=== PATIENT | male | born 1945 | race African-American/Black ===

== ENCOUNTER 2016-10-26 15:15 | Inpatient (IN) | payer OTHER, MEDICAID ==
[~2016-10-26] VITALS: Ht 170.2 cm; Wt 56.2 kg
--- NOTE | 2016-10-26 15:25 | NUR ---
PT BIBA TO BED 5 AT THIS TIME.
[2016-10-26 15:30] VITALS: BP 118/64
--- NOTE | 2016-10-26 15:35 | NUR ---
PER [facility] PATIENT ON CPAP OF [id number] PATIENT REFUSED FACIAL MASK WITH HEAD GEAR DUE TO CLOSTROPHOBIA PATIENT HOLDING MASK PLACED ON A BIPAP VISION TO LARGE FACIAL MASK WITH HEAD GEAR REFUSED TO WEAR AFTER 10 SECONDS DUE TO SAME FORMENTIONED REASON REVIEWED WITH DR. RYDER LASSITER PER ED MD PLACED PATIENT ON SUPPLEMENTAL OXYGEN AT 15 LM VIA NON REBREATHER
[2016-10-26] MEDS ORDERED: ZESTRIL20 MG PO (15:42)
[2016-10-26] MEDS ORDERED: ASPIRIN81 M1 PO (15:42)
--- NOTE | 2016-10-26 15:44 | NUR ---
71/M BIBA TO ED FROM DIALYSIS CENTER WHERE PT BECAME SOB. BILAT WHEEZES HEARD UPON AUSCULATATION. PT DENIES PAIN. PT IS AAOX4. DENIES COUGH. HR EVEN AND REGULAR. ERMD AWARE OF PTS CONDITION.
[2016-10-26] MEDS ORDERED: IPRATROPIUM 0.02% 0.5 MG/2.5 ML NEBU INH ONE ×2 (15:45→15:47)
[2016-10-26] MEDS ORDERED: ALBUTEROL 0.083% 2.5 MG/3 ML NEBU INH ONE ×2 (15:45→15:46)
[2016-10-26] MEDS ORDERED: NITROGLYCERIN 0.4 MG TAB SL ONE (15:45)
--- NOTE | 2016-10-26 15:45 | NUR ---
ADMITTING DX: SOB AWAKE AND ALERT IN HFW POSITION HHN THERAPY GIVEN ORDERED ENCOURAGED DEEP BREATHING AND COUGH DURING THERAPY TOLERATED WELL WITHOUT INCIDENT Addendum: 10/26/16 at 1615 by [facility] HHN THERAPY PLACED PATIENT BACK ON SUPPLEMENATL OXYGEN AT 15 LPM VIA NON-REBREATHER
[2016-10-26] MEDS ORDERED: COREG3.125 MG PO (15:49)
[2016-10-26] MEDS ORDERED: NORVASC10 MG PO (15:49)
[2016-10-26] MEDS ORDERED: VENTOLIN H0.09 MG/Ac IH (15:49)
[2016-10-26] MEDS ORDERED: CATAPRES0.1 MG PO (15:49)
[2016-10-26] MEDS ORDERED: LANTUS INS100 UNITS/ SUBQ (15:52)
[2016-10-26] MEDS ORDERED: DIALYVITE 8001 TAB PO (15:52)
[2016-10-26] MEDS ORDERED: ZOCOR20 MG PO (15:52)
[2016-10-26] MEDS ORDERED: cefTRIAXone 1,000 MG VIAL ONE (16:55)
--- NOTE | 2016-10-26 17:02 | NUR ---
Patient appears to be resting comfortably in bed. Vital Signs within normal limits. Respirations even and unlabored.
[2016-10-26] MEDS ORDERED: LORazepam 1 MG TAB PO PRN (17:10)
[2016-10-26] MEDS ORDERED: ONDANSETRON 4 MG/2 ML VIAL IVP PRN (17:10)
[2016-10-26] MEDS ORDERED: ACETAMINOPHEN 325 MG TAB PO PRN (17:10)
[2016-10-26] MEDS ORDERED: ZOLPIDEM 5 MG TAB PO PRN (17:10)
--- NOTE | 2016-10-26 17:25 | NUR ---
REPEAT HHN THERAPY GIVEN ORDERED TOLERATED WELL WITHOUT INCIDENT
--- NOTE | 2016-10-26 18:02 | NUR ---
PT HAS WOUND ON SACRUM, PICTURES TAKEN
[2016-10-26] MEDS ORDERED: ALBUTEROL 0.083% 2.5 MG/3 ML NEBU INH PRN (18:15)
--- NOTE | 2016-10-26 18:24 | NUR ---
Patient will be admitted to care of DR BAILEY. Admited to TELE. Will go to room 122B. Belongings list completed. Report to TRACY.
[2016-10-26 19:30] VITALS: BP 131/76
--- NOTE | 2016-10-26 19:35 | NUR ---
RECEIVED REPORT FROM DAY NURSETRACY. PATIENT BEING PREPARED TO RECEIVED DIALYSIS, DIALYSIS NURSE AT BEDSIDE. NO RESPIRATORY DISTRESS, SOB, OR DISCOMFORT. INITIAL ASSESSMENT AND BODY CHECK DONE. PATIENT IS AOX4, WOUND NOTED TO SACRAL AREA, IV ACCESS TO RIGHT AC 22G, PATENT. DIALYSIS ACCESS TO LEFT UPPER ARM. PATIENT HAS BL BKA. DISCUSSED PLAN OF CARE, MEDICATION REGIMENT, AND PAIN MANAGEMENT WITH PATIENT. PLACED PATIENT ON SAFETY/FALL/PRESSURE ULCER PRECAUTIONS. CALL LIGHT LEFT WITHIN REACH, WILL CONTINUE TO MONITOR.
[2016-10-26] MEDS: ALBUTEROL 0.083% 2.5 MG/3 ML NEBU INH SCH ×2 (20:06→23:23)
[2016-10-26] MEDS ORDERED: ALBUMIN HUMAN 25% 100 ML IV SCH (20:10)
--- NOTE | 2016-10-26 22:30 | NUR ---
DIALYSIS COMPLETED AT THIS TIME. DIALYSIS NURSE STATED 2L REMOVED FROM PATIENT. PATIENT TOLERATED WELL. NO RESPIRATORY DISTRESS, SOB, OR DISCOMFORT. CALL LIGHT LEFT WITHIN REACH, WILL CONTINUE TO MONITOR.
--- NOTE | 2016-10-26 23:29 | NUR ---
DIALYSIS R CHANGED PT TO 3 L NC CURRENT SAT IS 97% WILL CONTINUE TO MONITOR.
[2016-10-27] VITALS: BP 108/56
--- NOTE | 2016-10-27 00:59 | NUR ---
PATIENT IN BED, SLEEPING. NO RESPIRATORY DISTRESS, SOB, OR DISCOMFORT. CALL LIGHT LEFT WITHIN REACH, WILL CONTINUE TO MONITOR.
--- NOTE | 2016-10-27 03:05 | NUR ---
PATIENT ASLEEP. NO RESPIRATORY DISTRESS, SOB, OR DISCOMFORT. CALL LIGHT LEFT WITHIN REACH, WILL CONTINUE TO MONITOR.
[2016-10-27] MEDS: ALBUTEROL 0.083% 2.5 MG/3 ML NEBU INH SCH ×5 (03:24→19:29)
[2016-10-27 04:00] VITALS: BP 109/59
--- NOTE | 2016-10-27 06:07 | NUR ---
PATIENT SLEEPING. NO RESPIRATORY DISTRESS, SOB, OR DISCOMFORT. CALL LIGHT LEFT WITHIN REACH, WILL CONTINUE TO MONITOR.
--- NOTE | 2016-10-27 07:27 | NUR ---
REPORT GIVEN TO DAY NURSEERIKA. PATIENT RESTING IN BED, STABLE. NO RESPIRATORY DISTRESS, SOB, OR DISCOMFORT. ALL NEEDS ATTENDED TO DURING SHIFT, CALL LIGHT LEFT WITHIN REACH.
[2016-10-27 08:00] VITALS: BP 120/80
--- NOTE | 2016-10-27 08:32 | NUR ---
V/S WITHIN NORMAL LIMITS. PT IS SOB, SITTING IN HIGH CAIN'S POSITION. BREATHING SHALLOW AND RAPID. RESP 36. PT IS USING HIS ACCESSORY MUSCLES, LABORED. HAD ORDERED US GUIDED THORACENTESIS AND CANCELLED THE CT GUIDED THORACENTESIS. PRINTED A CONSENT FORM AND DR. ELY CAME AND EXPLAINED THE PROCEDURE. PT STATED HE HAD ONE PRIOR. HE VERBALIZED UNDERSTANDING AND SIGNED THE CONSENT. CONSENT IN THE CHART. WILL CONTINUE TO MONITOR PT.
--- NOTE | 2016-10-27 09:21 | NUR ---
PATIENT HAS BEEN SCREENED AND CATEGORIZED HIGH NUTRITION RISK. PATIENT WILL BE SEEN WITHIN 1-2 DAYS OF ADMISSION. 10/27/16-10/28/[address]
[2016-10-27] MEDS: DOCUSATE SODIUM 100 MG GELCAP PO SCH (09:22)
[2016-10-27] MEDS: VITAMIN B COMPLEX W/C 1 TAB PO SCH (09:22)
--- NOTE | 2016-10-27 10:00 | NUR ---
PT REQUESTED A PHONE PATCHER HELPER TO CHARGE HIS PHONE. FOUND ONE THAT WAS LEFT BY ANOTHER PT. CHARGED HIS PHONE AND RETURNED THE PATCHER HELPER. PT NEEDED TO GET THE PHONE NUMBER FRO DAUGHTERDAREN FOR FUTURE CONTACT.
--- NOTE | 2016-10-27 11:30 | NUR ---
R.T. HERE TO ADMINISTER BREATHING TX. PT TOLERATED WELL. WILL CONTINUE TO MONITOR.
[2016-10-27 12:00] VITALS: BP 108/71
--- NOTE | 2016-10-27 12:02 | NUR ---
PT IS RESTING IN BED. PT IS SOB BUT BETTER NOW THAT HE HAD THE BREATHING TX. WILL CONTINUE TO MONITOR PT.
--- NOTE | 2016-10-27 12:35 | NUR ---
10/27/16 RD INITIAL ASSESSMENT COMPLETED PLEASE REFER TO NUTRITION ASSESSMENT UNDER CARE ACTIVITY FOR ESTIMATED NUTRITIONAL NEEDS. RD RECOMMENDATIONS: 1. CONTINUE RENAL DIET TOLERATED 2. RD WILL F/U 2-3 DAYS; HIGH RISK. MORENA JONES RD
--- NOTE | 2016-10-27 13:00 | NUR ---
HAD THE THOROCENTESIS AT BEDSIDE. PT TOLERATED WELL. DR. PELAYO AND THE PLANT SCIENTIST CAME AND WITHDREW 1600 ML. WILL KEEP MONITORING PT.
--- NOTE | 2016-10-27 14:00 | NUR ---
STARTING SPITTING OUT FOAMY SALIVA. ASKED IF HE FELT NAUSEATED. HE DENIED IT. IS HUNCHED OVER A BASIN. OFFERED HIM SOME WATER TO RINSE OUT HIS MOUTH BUT REFUSED. TRIED TO DO V/S. HE REFUSED. WE TRIED EDUCATING PT HOW IMPORTANT ALL THESE TESTS WERE BUT NOT LISTENING. WILL CONTINUE TO MONITOR PT.
--- NOTE | 2016-10-27 15:00 | NUR ---
PT STILL SPITTING UP FOAM. ASKED PT IF HE IS NAUSEATED, IF HE NEEDS MEDICINE FOR NAUSEA. HE SAID NO. DID NOT WANT TO BE BOTHERED. WILL CONTINUE TO MONITOR PT.
--- NOTE | 2016-10-27 15:35 | NUR ---
PT REFUSED BREATHING TX AT THIS TIME DUE TO N/V. NURSE AWARE OF REFUSAL. PT NOT SOB AND NOT IN RESPIRATORY DISTRESS AT THIS TIME.
[2016-10-27 16:00] VITALS: BP 113/66
--- NOTE | 2016-10-27 16:33 | NUR ---
ADMINISTERED MARITA, HOPING IT WILL HELP HIS SPITTING UP. WILL CONTINUE TO MONITOR PT.
--- NOTE | 2016-10-27 16:40 | NUR ---
PT WANTED SOMETHING TO HELP HIM SLEEP. I CHECKED HIS BP. STABLE. GAVE ATIVAN 1MG TO CALM HIM DOWN SO HE CAN POSSIBLY SLEEP. HIS NAUSEA IS BETTER. NO MORE SPITTING UP LIKE BEFORE. I'M SITTING IN FRONT OF HIS ROOM AND DOCUMENTING. WILL CONTINUE TO MONITOR.
--- NOTE | 2016-10-27 17:46 | NUR ---
HE REFUSED THE BREATHING TX EARLIER BUT IS WILLING TO HAVE A BREATHING TX NOW. CALLED RESPIRATORY. THEY WILL BE RIGHT OVER TO GIVE HIM ONE.
--- NOTE | 2016-10-27 17:53 | NUR ---
PRN BREATHING TX GIVEN FOR SOB. NASAL CANNULA INCREASED TO 4L DUE TO DECREASED SPO2. PT STATES RELIEF POST TX. SPO2 NOW 93%.
--- NOTE | 2016-10-27 18:47 | NUR ---
PT FELL ASLEEP AFTER HIS BREATHING TX. HAVEN'T TOUCHED HIS DINNER YET. WILL LET HIM SLEEP. NO SIGNS OF DISTRESS. WILL CONTINUE TO MONITOR PT.
--- NOTE | 2016-10-27 19:24 | NUR ---
ENDORSED PT TO THE MEMBERSHIP SOLICITOR NURSE AT BEDSIDE FOR CONTINUITY OF CARE. PT NEEDED TO BE PULLED UP SO SEAN AND I PULLED HIM UP AND TIDIED HIS BLANKETS. PT IS RESTING COMFORTABLY. HE EVEN WANTED TO EAT SOME DINNER. PT IS STABLE.
--- NOTE | 2016-10-27 19:26 | NUR ---
RECEIVED REPORT FROM DAY SHIFT RN FOR CONTINUITY OF CARE. PATIENT IS A&OX4, EXPLAINED PLAN OF CARE TO PATIENT. NO S/S OF RESPIRATORY DISTRESS NOTED ON 3L O2 VIA NC. PATIENT DENIES ANY PAIN . SHIFT ASSESSMENT DONE, VS TAKEN, B/P 98/50 PATIENT STATES THIS IS NORMAL FOR HIM. IV TO RT AC 22 GAUGE PATENT AND FLUSHED. PATIENT HAS BILATERAL BELOW KNEE AMPUTATION, PROSTHESIS AT BEDSIDE. PATIENT HAS SACRAL PRESSURE ULCER STAGE 2. SAFETY/FALL PRECAUTIONS ENFORCED. PATIENT IS SITTING UP IN BED EATING DINNER. CALL LIGHT PLACED WITHIN REACH.
[2016-10-27 19:59] VITALS: BP 98/50
--- NOTE | 2016-10-27 20:32 | NUR ---
SPOKE WITH DIALYSIS NURSE REGARDING ORDER FOR AM DIALYSIS.
[2016-10-27] MEDS ORDERED: PIPERACILLIN/TAZOBACTAM 2.25 GM VIAL IV ONE (20:50)
[2016-10-27] MEDS: PIPER/TAZO 2.25GM/D5W PREMIX 50 ML IV SCH (20:59)
--- NOTE | 2016-10-27 21:03 | NUR ---
DUE MEDICATIONS ADMINISTERED, TOLERATED WELL. PATIENT IS NOW SLEEPING. CALL LIGHT WITHIN REACH.
[2016-10-28] VITALS: BP_SYST 94; BP_SYST 95; BP_DIAS 51; BP_DIAS 52
--- NOTE | 2016-10-28 00:07 | NUR ---
VS TAKEN, STABLE. PROVIDED ORAL CARE TO PATIENT. CALL LIGHT PLACED WITHIN REACH.
[2016-10-28] MEDS: ALBUTEROL SULFATE/IPRATROPIU 3 ML SOL IH SCH ×4 (01:52→19:00)
--- NOTE | 2016-10-28 02:40 | NUR ---
PT IS NOW SLEEPING. NO S/S OF DISTRESS OR DISCOMFORT NOTED.
[2016-10-28 04:00] VITALS: BP 104/52
--- NOTE | 2016-10-28 04:26 | NUR ---
REPOSITIONED PATIENT AND MADE COMFORTABLE. NO S/S OF DISTRESS OR DISCOMFORT NOTED. PT NOW ON 4L O2.
[2016-10-28] MEDS ORDERED: PIPERACILLIN/TAZOBACTAM 2.25 GM VIAL IV ONE (04:42)
[2016-10-28] MEDS: PIPER/TAZO 2.25GM/D5W PREMIX 50 ML IV SCH ×3 (04:44→20:20)
--- NOTE | 2016-10-28 06:32 | NUR ---
PATIENT LEFT TO CT.
--- NOTE | 2016-10-28 06:52 | NUR ---
PATIENT RETURNED FROM CT.
--- NOTE | 2016-10-28 07:15 | NUR ---
ENDORSED PATIENT TO DAYSHIFT RN FOR CONTINUITY OF CARE. PATIENT IS STABLE AT THIS TIME.
--- NOTE | 2016-10-28 07:16 | NUR ---
RECEIVED REPORT AT BEDSIDE. PT SLEEPING, EASILY AWAKENS. DENIES PAIN. DENIES FEELING SOB. AAOX4. CALL LIGHT WITHIN REACH. HAS AV SHUNT TO LAYNE, HAS BRUIT AND THRILL. LUNG SOUNDS HAVE CRACKLES BILATERALLY. IV TO RAC PATENT AND INTACT. WILL CONTINUE TO MONITOR.
[2016-10-28 08:00] VITALS: BP 110/63
[2016-10-28] MEDS: DOCUSATE SODIUM 100 MG GELCAP PO SCH (08:10)
[2016-10-28] MEDS: ATORVASTATIN 20 MG TAB PO SCH (08:10)
[2016-10-28] MEDS: VITAMIN B COMPLEX W/C 1 TAB PO SCH (08:10)
--- NOTE | 2016-10-28 08:30 | NUR ---
PT TOLERATED AM MEDS, DENIES DISCOMFORT.
--- NOTE | 2016-10-28 09:52 | NUR ---
PT SEEN BY DR. STAHL, AWAITING FOR HD TODAY.
--- NOTE | 2016-10-28 10:15 | NUR ---
SPOKE WITH DIALYSIS NURSE, NURSE TO COME IN AROUND 1230.
--- NOTE | 2016-10-28 10:33 | NUR ---
PATIENT SEEN BY DR. PAZ.
[2016-10-28] MEDS ORDERED: Z-GUARD PASTE TP PRN (10:35)
[2016-10-28] MEDS: MUPIROCIN 2% OINT 22 GM TUBE TP SCH (11:46)
[2016-10-28] MEDS: CHLORHEXADINE GLUC 2% CLOTH TP SCH (11:46)
[2016-10-28] MEDS: Z-GUARD PASTE TP SCH (11:47)
[2016-10-28] MEDS: HYDROcodone/APAP 5/325 MG 1 TAB TAB PO PRN (11:48)
[2016-10-28 12:00] VITALS: BP 102/54
--- NOTE | 2016-10-28 13:00 | NUR ---
DIALYSIS NURSE AT BEDSIDE.
--- NOTE | 2016-10-28 13:16 | NUR ---
WOUND CARE EVALUATION NOTES: REASON FOR EVALUATION: SACRAL WOUND COMPLETE SKIN ASSESSMENT DONE ON THIS 71 Y/O MALE PATIENT FROM HOME TO [facility], WITH INITIAL DIAGNOSIS OF PLEURAL EFFUSION. PAST MEDICAL HISTORY INCLUDE CHRONIC KIDNEY DISEASE ON DIALYSIS, HYPERTENSION AND DM. ALL ABOVE INFORMATION WAS OBTAINED FROM THE ADMISSION H&P. LABS ARE WBC 6.3, H/H 11.8/36.8, GLUCOSE 120, ALBUMIN 3.3, PT/INR 11.9/1.2 AND PTT 28.3. CURRENT MEDS INCLUDE ZOSYN, VIT B COMPLEX, HEPARIN, ATIVAN, AMBIEN AND NORCO. PATIENT IS ASLEEP, EASILY AROUSABLE TO NAME. ORIENTED TO PERSON, PLACE, DATE AND TIME. SKIN WARM TO TOUCH WNL, NO EDEMA, SCARRING NOTED TO BILATERAL BKA. URINE AND BOWEL INCONTINENT. ABLE TO TURN SELF WITH MINIMAL ASSISTANCE. LEFT ARM AV FISTULA NOTED. INITIAL PLAN OF CARE AND PRESSURE PREVENTIVE MEASURES DISCUSSED, ABLE TO VERBALIZE UNDERSTANDING. INTEGUMENTARY: COCCYX - ST II - 100% BROWN SCAB. TOUCH SENSITIVE BILATERAL BKA RECOMMENDATIONS: -CLEANSE SACRALOCOCCYX TO PERIAREA WITH MILD SOAP AND WATER, PAT DRY, APPLY Z GUARD BIDWC AND PRN WITH SOILING. LEAVE OPEN TO AIR -TURN AND REPOSITION PATIENT Q2H TO LEFT AND RIGHT SIDE ONLY TO OFFLOAD SACRALCOCCYX -ASSESS AND MONITOR SKIN CONDITION DURING POSITION CHANGE, PLEASE PAY PARTICULAR ATTENTION TO SACRALCOCCYX, ELBOWS AND HEELS -OFFLOAD BILATERAL HEELS BY PLACING PILLOWS UNDER CALVES AT ALL TIMES, UNLESS OTHERWISE CONTRAINDICATED -PRESSURE REDISTRIBUTION SURFACE THERAPY -KEEP SKIN CLEAN AND DRY AT ALL TIMES. RECOMMENDATIONS DISCUSSED WITH PRIMARY RN AND RESIDENT PHYSICIAN, DR. ERIC. WILL FOLLOW UP PATIENT Q 7 DAYS AND PRN. PLEASE CONTACT [facility] FOR ANY CONCERNS, QUESTIONS AND CHANGES IN SKIN CONDITION.
--- NOTE | 2016-10-28 13:28 | NUR ---
PT C/O LEFT SHOULDER PAIN, MADE AWARE.
--- NOTE | 2016-10-28 13:52 | NUR ---
PT REFUSED BREATHING TX AT THIS TIME STATING HIS PAIN IN HIS SHOULDER FOR THE REASONING. NURSE AWARE. PT NOT SOB AND NOT IN RESPIRATORY DISTRESS AT THIS TIME.
--- NOTE | 2016-10-28 15:30 | NUR ---
HD NURSE AT BEDSIDE. BP 68/36, NO S/S OF DISTRESS. MD MADE AWARE BY DIALYSIS NURSE, NO NEW ORDERS.
[2016-10-28 16:00] VITALS: BP 85/43
--- NOTE | 2016-10-28 16:30 | NUR ---
PATIENT FINISHED WITH HD. PATIENT HAD 1.3L OUT. DR. PAZ AWARE OF LOW BP. PT HAS NO S/S OF DISTRESS NOTED.
--- NOTE | 2016-10-28 19:20 | NUR ---
ENDORSED PLAN OF CARE TO PIANO ACCOMPANIST AB AT PT BEDSIDE. NO S/S OF ACUTE DISTRESS NOTED.
--- NOTE | 2016-10-28 19:20 | NUR ---
PT IS CURRENTLY AWAKE ALERT ORIENTED RESTING IN BED HAS OXYGEN AT 4L VIA NASAL CANNULA.IV SITE TO RT AC G#22 PT DENIES ANY PAIN OR DISCOMFORT.CONTINUES TO BE TURNED AND REPOSITIONED FOR COMFORT OFFLOADING DONE.PT NEEDS TO BE MOVED TO A WOUND CARE BED ENDORSED BY RN KIAN.FALL PRECAUTIONS IMPLEMENTED CALL LIGHT WITHIN REACH AND BED ALARM ON.WILL CONTINUE TO MONITOR.
--- NOTE | 2016-10-28 19:30 | NUR ---
Patient's Plan of Care was discussed and reviewed with PRESENTATION SPECIALIST: MAXIM
[2016-10-28 20:00] VITALS: BP 100/56
--- NOTE | 2016-10-28 20:21 | NUR ---
PT RECEIVED HIS NIGHT TIME MEDICATION AND ALSO WILL GET HIS ANTIBIOTIC BY [place] [facility].PT THEN ATTEMPTED TO GET OUT OF BED HE WAS ABLE TO MOVE HIS BODY SIDEWAYS.I PULLED THE PATIENT CAREFULLY BACK TO BED AND I ASKED THE PATIENT WHY HIS TRYING TO EXIT THE BED PT STATES,"I WANT TO GO HOME."I EXPLAINED TO HIM HIS PLAN OF CARE AND EDUCATED HIM ON SAFETY.PT VERBALIZES UNDERSTANDING BUT NEEDS TO BE REINFORCED.PATIENT MONITORED FREQUENTLY AND BED ALARM ON.
--- NOTE | 2016-10-28 21:00 | NUR ---
PT WAS MOVED TO A SPECIAL WOUND CARE BED WITH THE ASSISTANCE OF ANN MARIE HORTON AND ANN MARIE LASSITER.THEN PATIENT WAS PULLED UP IN BED AND TURNED AND REPOSITIONED FOR COMFORT.WILL CONTINUE TO MONITOR.BED ALARM ON AT ALL TIMES.
--- NOTE | 2016-10-28 21:05 | NUR ---
PT SEEN ATTEMPTING TO GET UP I ASKED HIM IF HE NEEDS SOMETHING PT STATES,"YES I WANT TO EAT MY FRUIT."I ASSISTED THE PATIENT TO EAT SOME FRUIT THEN PT STATES,"THAT'S ENOUGH." AND PATIENT WAS ASSISTED TO GET COMFORTABLE IN BED.
--- NOTE | 2016-10-28 23:27 | NUR ---
PT CURRENTLY AWAKE WATCHING TV RESTLESS AT TIMES.BED ALARM.
[2016-10-29] VITALS (8 sets, daily range): BP systolic 84–110; BP diastolic 40–60
[2016-10-29] MEDS: HYDROcodone/APAP 5/325 MG 1 TAB TAB PO PRN (00:42)
[2016-10-29] MEDS: ALBUTEROL SULFATE/IPRATROPIU 3 ML SOL IH SCH ×4 (01:00→20:00)
[2016-10-29] MEDS: Z-GUARD PASTE TP SCH ×2 (01:34→13:11)
--- NOTE | 2016-10-29 01:47 | NUR ---
PT ASLEEP, HE REFUSED ALL HHN TX TONIGHT, HE COMPLAINED ABOUT PAIN AND THE THE TX DOES NOT HELP
--- NOTE | 2016-10-29 02:54 | NUR ---
PT SLEEPING QUIETLY IN BED IN NO DISTRESS WILL CONTINUE TO MONITOR.BED ALARM ON.
--- NOTE | 2016-10-29 04:20 | NUR ---
PT IS CURRENTLY SLEEPING IN BED AT THIS TIME CONTINUE TO BE TURNED AND REPOSITIONED NEEDS MET.BED ALARM ON.
[2016-10-29] MEDS: PIPER/TAZO 2.25GM/D5W PREMIX 50 ML IV SCH ×3 (04:41→20:47)
--- NOTE | 2016-10-29 06:39 | NUR ---
PT SLEEPING IN BED NO DISTRESS NO COMPLAINS OF PAIN.WILL CONTINUE TO MONITOR PT IN NO ACUTE DISTRESS.
--- NOTE | 2016-10-29 07:20 | NUR ---
RECEIVED REPORT FROM THE SUBSTATION DESIGNER NURSE AT BEDSIDE. PT WAS SLEEPING. BREATHING IS BETTER. NO LABORED OR USE OF ACCESSORY MUSCLE LIKE THE SUNDAY NIGHT. NOTED NO IV INFUSING. HE STILL HAS AN IV IN THE L AC 22G SL. NOTED THE L AV SHUNT. PT HAD HIS NC ON O2 AT 3L. NOTED THE CONTACT ISOLATION. + MRSA IN THE NARES. CALL LIGHT WITHIN REACH. WILL CONTINUE TO MONITOR PT.
--- NOTE | 2016-10-29 08:30 | NUR ---
Kristin IS HERE GIVING HIM BREATHING TX. PT TOLERATING IT WELL. UPDATED THE BOARD IN HIS ROOM. WILL CONTINUE TO MONITOR PT.
[2016-10-29] MEDS ORDERED: MUPIROCIN 2% OINT 22 GM TUBE TP SCH (09:00)
[2016-10-29] MEDS: DOCUSATE SODIUM 100 MG GELCAP PO SCH (09:39)
[2016-10-29] MEDS: ATORVASTATIN 20 MG TAB PO SCH (09:39)
[2016-10-29] MEDS: VITAMIN B COMPLEX W/C 1 TAB PO SCH (09:39)
--- NOTE | 2016-10-29 10:30 | NUR ---
NEEDED TO BE PULLED UP. ASKED NIRMAL TO HELP ASSIST ME TO PULL UP PT. PT BREATHING MUCH BETTER. PT IS STABLE. NO SIGNS OF DISTRESS. NO COMPLAINTS AT THIS TIME. WILL CONTINUE TO MONITOR.
[2016-10-29] MEDS: CHLORHEXADINE GLUC 2% CLOTH TP SCH (11:05)
[2016-10-29] MEDS: MUPIROCIN 2% OINT 22 GM TUBE TP SCH (11:05)
--- NOTE | 2016-10-29 13:00 | NUR ---
PT IV INFILTRATED. NO IV ACCESS FOR ZOSYN. NEED TO START A NEW IV. STARTED ONE ON R HAND 22G. ABLE TO HANG THE ZOSYN. PT TOLERATED WELL. WILL CONTINUE TO MONITOR PT. BP WAS TOO LOW AT 1200 SO RETOOK THE V/S AFTER EATING LUNCH. WENT UP TO 94/51.
--- NOTE | 2016-10-29 13:30 | NUR ---
CHECKED V/S AGAIN. IT IS UP TO 110/61. NOTIFIED
--- NOTE | 2016-10-29 15:05 | NUR ---
RADIOLOGIST IS HERE TO DO PT'S CXRAY.
--- NOTE | 2016-10-29 17:00 | NUR ---
NEEDED TO BE PULLED UP. GAMBLING SUPERVISOR CAME IN AND ASSISTED. REPOSITIONED PT. READY FOR DINNER TRAY. WILL CONTINUE TO MONITOR.
--- NOTE | 2016-10-29 18:43 | NUR ---
PT IS RESTING IN BED. SLEEPING SOUNDLY. SAFETY MEASURES IN PLACE. WILL CONTINUE TO MONITOR PT.
--- NOTE | 2016-10-29 19:25 | NUR ---
ENDORSED PT TO THE NIGHTSHIFT NURSE AT BEDSIDE FOR CONTINUITY OF CARE. PT IS STABLE.
--- NOTE | 2016-10-29 20:54 | NUR ---
PM MEDS GIVEN, PATIENT TOLERATED WELL. PATIENT SLEEPING, NO SOB OR SIGN OF DISTRESS, CALL LIGHT WITHIN REACH. WILL CONTINUE TO MONITOR.
--- NOTE | 2016-10-29 22:00 | NUR ---
PATIENT SITING UP, RESTING IN BED, NO SOB OR SIGN OF DISTRESS, CALL LIGHT WITHIN REACH. WILL CONTINUE TO MONITOR.
[2016-10-30] VITALS: BP 103/59
[2016-10-30] MEDS: ALBUTEROL SULFATE/IPRATROPIU 3 ML SOL IH SCH ×3 (01:00→14:05)
--- NOTE | 2016-10-30 01:34 | NUR ---
PAGED DR STAHL, TANKER DRIVER FOR DR BAILEY, PATIENT HAS BEEN TAKING OWN BLOOD SUGAR AND WAS ASKING FOR NEEDLES TO GIVE HIMSELF INSULIN, CALLED DR STAHL TO GET ORDER FOR ACCU CHECKS SO PATIENT CAN RECEIVE INSULIN IF NEEDED. DR STAHL STATED HE WOULD PLACE TO ORDER FOR ACCU CHECKS. EXPLAINED TO PATIENT THE PLAN, PATIENT VERBALIZED UNDERSTANDING.
--- NOTE | 2016-10-30 01:37 | NUR ---
PATIENT UP RESTING IN BED, CALL LIGHT WITHIN REACH, WILL CONTINUE TO MONITOR. VITAL SIGNS STABLE.
[2016-10-30] MEDS: Z-GUARD PASTE TP SCH ×2 (01:38→13:00)
--- NOTE | 2016-10-30 02:15 | NUR ---
PATIENT FREQUENTLY USING CALL LIGHT. PATIENT CHECKED HIS BLOOD SUGAR WITH PERSONAL MACHINE, PATIENT STATED IT WAS HIGH AND WAS ANXIOUS BECAUSE HE SAID HE NEEDED INSULIN BUT HAD NO NEEDLES. EXPLAINED TO PATIENT, DR WAS CONTACTED AND THEY WERE GOING TO ENTER IN ORDER FOR ACCU CHECKS. PATIENT VERBALIZED UNDERSTANDING. WILL CONTINUE TO MONITOR.
[2016-10-30] MEDS ORDERED: DEXTROSE 50% 50 ML SYR IVP PRN (02:20)
[2016-10-30] MEDS ORDERED: INSULIN ASPART SLIDING SCALE 100 UNITS/ML VIAL SUBQ PRN (02:20)
[2016-10-30] MEDS ORDERED: BLOOD GLUCOSE MONITORING 1 DEV DEV FS SCH (02:40)
--- NOTE | 2016-10-30 02:40 | NUR ---
PATIENT UP IN BED, BLOOD SUGAR CHECK. 124, NO INSULIN COVERAGE NEEDED. NO SOB OR SIGN OF DISTRESS, CALL LIGHT WITHIN REACH. WILL CONTINUE TO MONITOR.
[2016-10-30 04:00] VITALS: BP 93/52
--- NOTE | 2016-10-30 05:02 | NUR ---
PATIENT RESTING IN BED, NO SIGN OF DISTRESS, VITAL SIGNS STABLE , CALL LIGHT WITHIN REACH. WILL CONTINUE TO MONITOR.
[2016-10-30] MEDS: PIPER/TAZO 2.25GM/D5W PREMIX 50 ML IV SCH ×2 (05:26→12:58)
--- NOTE | 2016-10-30 05:50 | NUR ---
PATIENT REFUSED AM LAB DRAW.
[2016-10-30] MEDS: BLOOD GLUCOSE MONITORING 1 DEV DEV FS SCH ×3 (06:25→16:39)
--- NOTE | 2016-10-30 07:20 | NUR ---
ENDORSED PATIENT TO DAY RN AT BEDSIDE, PATIENT IN STABLE CONDITION.
--- NOTE | 2016-10-30 07:20 | NUR ---
RECEIVED REPORT FROM NIGHT NURSE, PT IS AAOX4, IV TO RIGHT HAND 22G SALINE LOCK PATENT AND INTACT, LEFT AV SHUNT, O2 3L VIA NC , SACRAL ULCER, BED BOUND BLE BKA, INITIAL ASSESSMENT COMPLETED, REVIEWED PLAN OF CARE WITH PT, PT VERBALIZED UNDERSTANDING, ALL NEEDS MET, ALL SAFETY PRECAUTIONS MET, CALL LIGHT WITHIN REACH, WILL CONTINUE TO MONITOR.
[2016-10-30 08:00] VITALS: BP 100/59
--- NOTE | 2016-10-30 08:08 | NUR ---
PT REFUSED BREATHING TX AT THIS TIME. PT NOT SOB AND NOT IN RESPIRATORY DISTRESS. WILL CONTINUE TO MONITOR.
[2016-10-30] MEDS: ATORVASTATIN 20 MG TAB PO SCH (09:37)
[2016-10-30] MEDS: VITAMIN B COMPLEX W/C 1 TAB PO SCH (09:38)
[2016-10-30] MEDS: DOCUSATE SODIUM 100 MG GELCAP PO SCH (09:38)
--- NOTE | 2016-10-30 09:40 | NUR ---
DUE MEDICATION GIVEN, PT TOLERATED WELL, NO S/S OF RESPIRATORY DISTRESS NOTED. CALL LIGHT WITHIN REACH WILL CONTINUE TO MONITOR.
[2016-10-30] MEDS ORDERED: LEVAQUIN750 MG PO (10:01)
[2016-10-30] MEDS ORDERED: CLINDAMYCIN300 MG PO (10:03)
--- NOTE | 2016-10-30 10:40 | NUR ---
SS NOTE: PER RIAZ FROM [facility] ([phone]), PT CAN GO TO ROOM 13B ANYTIME UNDER [address]RE[address].
--- NOTE | 2016-10-30 11:35 | NUR ---
CHECKED IN ON PT, PT CURRENTLY WATCHING TV NO S/S OF SOB OR RESPIRATORY DISTRESS NOTED, ALL NEEDS MET. CALL LIGHT WITHIN REACH.
[2016-10-30] MEDS: MUPIROCIN 2% OINT 22 GM TUBE TP SCH (11:53)
[2016-10-30] MEDS: CHLORHEXADINE GLUC 2% CLOTH TP SCH (11:53)
[2016-10-30 12:00] VITALS: BP 109/62
--- NOTE | 2016-10-30 12:20 | NUR ---
GAVE REPORT TO LIVAN HAYNES FROM [facility].
--- NOTE | 2016-10-30 13:05 | NUR ---
UPDATED PT ON DISCHARGE PLAN, INFORMED PT THAT TRANSPORTATION WILL BE ARRIVING AT 1600, PT VERBALIZED UNDERSTANDING. CALL LIGHT WITHIN REACH WILL CONTINUE TO MONITOR.
--- NOTE | 2016-10-30 13:31 | NUR ---
SPOKE WITH ARINA OF [facility] PH# [phone] TO GET A QUOTE FOR PATIENT TRANSPORT BACK TO [facility]. SPOKE WITH PATIENT'S DAUGHTER DAREN PH# [phone] AND SHE SAID THEY ARE UNABLE TO PAY FOR TRANSPORT. SPOKE WITH JAZMYN OF [facility] WHICH BRINGS PATIENT TO HIS DIALYSIS AND SHE SAID PATIENT IS ABLE TO BE TRANSPORTED ON WHEELCHAIR WHEN HE GOES TO DIALYSIS. SPOKE WITH AMANDO OF [facility] PH# [phone] TO SET UP PATIENT TRANSPORT ON 3L O2 BY ID, 1630 LEATHER WHITENER TIME TODAY. CHARGE NURSE WILLIAM HAN EXT [phone]. PATIENT'S DAUGHTER DAREN HNA PH# [phone] Addendum: 10/30/16 at 1342 by Jina Domínguez CM PATIENT GOING BACK TO [facility] RM [address] TO BE PICKED UP BY [facility] ON 3L O2 VIA NASAL CANNULA AT 1630 TODAY
--- NOTE | 2016-10-30 15:05 | NUR ---
PT WAS CHANGED AND ALL PERSONAL BELONGING ARRANGED IN A BELONGING BAG, ALL NEEDS MET, PT IS CURRENTLY SITTING DOWN ON A CHAIR AT BEDSIDE, CALL LIGHT WITHIN REACH, WILL CONTINUE TO MONITOR.
[2016-10-30] MEDS ORDERED: PNEUMOCOCCAL VACCINE 23 MCG/0.5 ML VIAL IMVAC SCH (15:55)
[2016-10-30] MEDS ORDERED: INFLUENZA VIRUS VACCINE QUAD 0.5 ML SYR IMVAC SCH (15:55)
[2016-10-30 16:00] VITALS: BP 96/54
--- NOTE | 2016-10-30 16:23 | NUR ---
UPDATED PT ON DISCHARGE PLAN, INFORMED PT LAZARO BUENO WILL BE LATE TO PICK HIM UP. PT SIGNED ALL DISCHARGE PAPERWORK, PRESCRIPTION AND EDUCATION GIVEN, PT VERBALIZED UNDERSTANDING, FLU AND PNEUMOCOCCAL VACCINE GIVEN, IV REMOVED TIP INTACT. CALL LIGHT WITHIN REACH WILL CONTINUE TO MONITOR. Addendum: 10/30/16 at 1823 by Tosin Hernandes RN TRANSPORTATION WILL BE [facility]
--- NOTE | 2016-10-30 17:10 | NUR ---
CHECKED IN ON PT, PT IS WORRIED ABOUT HIS TRANSPORTATION, INFORMED PT THAT [facility] IS RUNNING LATE. PT VERBALIZED UNDERSTANDING, CALL LIGHT WITHIN REACH.
--- NOTE | 2016-10-30 18:00 | NUR ---
[facility] HERE TO FLIGHT DISPATCHER PT, PT WAS TRANSPORTED VIA WHEEL CHAIR IN STABLE CONDITION, ID BANDS REMOVED ALL PERSONAL BELONGING WITH PT.
== END 2016-10-30 18:00 | DRG 177 ==
LOC: MED 15:15 → MTU 17:13
PROVIDERS: ADMIT Family Medicine; ATTEND Family Medicine
PROC: 5A1D60Z (ICD-10-PCS; 2016-10-26)
PROC: 0W993ZZ Drainage of Right Pleural Cavity, Percutaneous Approach (ICD-10-PCS; principal; 2016-10-27)
DX: J69.0 Pneumonitis due to inhalation of food and vomit (principal); I50.43 Acute on chronic combined systolic (congestive) and diastolic (congestive) heart failure; J96.00 Acute respiratory failure, unspecified whether with hypoxia or hypercapnia; N17.0 Acute kidney failure with tubular necrosis; N18.6 End stage renal disease; E44.0 Moderate protein-calorie malnutrition; I13.2 Hypertensive heart and chronic kidney disease with heart failure and with stage 5 chronic kidney disease, or end stage renal disease; Z68.1 Body mass index [BMI] 19.9 or less, adult; I42.0 Dilated cardiomyopathy; J90 Pleural effusion, not elsewhere classified; F41.1 Generalized anxiety disorder; B19.20 Unspecified viral hepatitis C without hepatic coma; E11.21 Type 2 diabetes mellitus with diabetic nephropathy; E11.22 Type 2 diabetes mellitus with diabetic chronic kidney disease; E11.51 Type 2 diabetes mellitus with diabetic peripheral angiopathy without gangrene; D53.9 Nutritional anemia, unspecified; E21.3 Hyperparathyroidism, unspecified; E78.5 Hyperlipidemia, unspecified; Z99.81 Dependence on supplemental oxygen; Z99.2 Dependence on renal dialysis; Z89.512 Acquired absence of left leg below knee; Z89.511 Acquired absence of right leg below knee; Z79.82 Long term (current) use of aspirin; Z79.899 Other long term (current) drug therapy; Z79.4 Long term (current) use of insulin; Z98.41 Cataract extraction status, right eye; Z56.0 Unemployment, unspecified; Z87.891 Personal history of nicotine dependence

== ENCOUNTER 2016-12-17 20:50 | Inpatient (IN) | payer OTHER, MEDICAID ==
[~2016-12-17] VITALS: Ht 149.9 cm; Wt 52.2 kg
[~2016-12-17 20:50] MED LIST: ALBU0.0912 IH; AMLO10TA PO; ASPI81CT89 PO; CARV3.12 PO; CLIN300C15 PO; CLON0.1T42 PO; LANTUS SUBQ; LEVO750T2 PO; LISI-420 PO; MULT-574 PO; SIMV20TA1 PO
--- NOTE | 2016-12-17 20:50 | NUR ---
[facility] TO ER BED 2
[2016-12-17 20:58] VITALS: BP 155/50
--- NOTE | 2016-12-17 21:00 | NUR ---
BIBA C/O GEN WEAKNESS, SOB , WITH O2 VIA N/C AT 4 L.DIALYSIS WAS DONE YESTERDAY
--- NOTE | 2016-12-17 21:01 | NUR ---
71Y M BIBA C/O GENERAL WEAKNESS WHILE AT HOME. PT STATES HE IS CURRENTLY ON OXYGEN AT HOME 4L NASAL CANULA, [facility] AV SHUNT ON THE LEFT ARM, WITH DIALYSIS ON , , AND SUNDAY. PT HAS HX OF DM, CHF, HTN, STROKE RIGHT SIDED WEAKNESS. PT IS BILAT ABOVE THE KNEE AMPUTATION, STAGE 1 SACRAL DECUBITUS, WITH BILATERAL EYE DISCHARGE. PT STATES HE DOES NOT PRODUCE URINE. 18G IN THE RIGHT FOREARM ESTABLISHED ON THE FIELD BY EMS. PT DENIES N/V/D; SKIN IS PINK/WARM/DRY; AAOX4 WITH EVEN AND STEADY GAIT; LUNGS CLEAR BL; HR EVEN AND REGULAR; PT DENIES ANY FEVER, CP, SOB, OR COUGH AT THIS TIME; VSS; PATIENT POSITIONED FOR COMFORT; HOB ELEVATED; BEDRAILS UP X2; BED DOWN. ER MD MADE AWARE OF PT STATUS.
--- NOTE | 2016-12-17 21:03 | NUR ---
PT STATES HE DOES NOT PRODUCE URINE, ER MD DR WICK AWARE.
[2016-12-17 21:22] LABS: BASOPHILS # (AUTO) 0.3 K/uL (0.00-0.22); BASOPHILS % (AUTO) 3.1 % (0.0-2.0); EOSINOPHILS # (AUTO) 0.4 K/uL (0-0.4); EOSINOPHILS % (AUTO) 4.5 % (0.0-4.0); HEMATOCRIT 34.1 % (36-52); HEMOGLOBIN 10.8 g/dL (12.0-18.0); LYMPHOCYTES # (AUTO) 0.6 K/uL (2.0-11.5); LYMPHOCYTES % (AUTO) 7.7 % (20.5-51.1); MEAN CORPUSCULAR HEMOGLOBIN 31 pg (27-31); MEAN CORPUSCULAR HGB CONC 32 g/dL (33-37); MEAN CORPUSCULAR VOLUME 98 fL (80-94); MONOCYTES # (AUTO) 0.6 K/uL (0.8-1.0); MONOCYTES % (AUTO) 6.9 % (1.7-9.3); NEUTROPHILS # (AUTO) 6.5 K/uL (1.8-7.7); NEUTROPHILS % (AUTO) 77.8 % (42.2-75.2); PLATELET COUNT (AUTO) 126 K/uL (140-450); RED BLOOD CELL COUNT(AUTO) 3.49 MIL/uL (4.20-6.10); RED CELL DISTRIBUTION WIDTH 14.5 % (11.6-13.7); WHITE BLOOD COUNT (AUTO) 8.4 K/uL (4.8-10.8)
--- NOTE | 2016-12-17 21:30 | NUR ---
GLUCOSE 41, ER MD DR WICK AWARE, WILL ORDER D50
[2016-12-17] MEDS ORDERED: DEXTROSE 50% 50 ML SYR IVP ONE (21:35)
[2016-12-17 21:43] LABS: ALBUMIN 2.7 g/dL (3.4-5.0); ANION GAP 13.5 (8-16); CALCIUM 7.5 mg/dL (8.5-10.1); CARBON DIOXIDE 32.9 mmol/L (21-32); POTASSIUM 4.4 mmol/L (3.5-5.1); TOTAL BILIRUBIN 0.5 mg/dL (0.0-1.0)
[2016-12-17 21:50] LABS: CREATININE 11.6 mg/dL (0.6-1.3)
[2016-12-17 21:54] LABS: INR 1.2 (0.8-1.2); PROTHROMBIN TIME 11.4 secs (10.8-13.4)
[2016-12-17 21:55] LABS: LACTIC ACID 0.6 mmol/L (0.4-2.0)
[2016-12-17] MEDS ORDERED: NITROGLYCERIN 0.4 MG TAB SL ONE (22:25)
[2016-12-17] MEDS ORDERED: ONDANSETRON 4 MG/2 ML VIAL IVP PRN (23:20)
[2016-12-17] MEDS ORDERED: FUROSEMIDE 40 MG/4 ML VIAL IVP ONE (23:20)
[2016-12-17] MEDS ORDERED: ACETAMINOPHEN 325 MG TAB PO PRN (23:20)
--- NOTE | 2016-12-17 23:27 | NUR ---
BP 86/49 HR 75, ER MD DR WICK AWARE, TOLD TO HOLD FUROSEMIDE 40MG.
--- NOTE | 2016-12-17 23:30 | NUR ---
PT REFUSE FERNANDEZ INSERTION, ER MD DR WICK AWARE
[2016-12-17] MEDS ORDERED: DEXTROSE 50% 50 ML SYR IVP PRN (23:40)
[2016-12-17 23:46] LABS: CHOL/HDL RATIO 2.2 (1-4.5)
[2016-12-18 00:02] LABS: FREE T4 (FREE THYROXINE) 2.38 ng/dL (0.76-1.46); THYROID STIMULATING HORMONE 2.09 uIU/mL (0.34-3.76)
--- NOTE | 2016-12-18 02:06 | NUR ---
Patient appears to be resting comfortably in bed. Vital Signs within normal limits. Respirations even and unlabored.
--- NOTE | 2016-12-18 04:22 | NUR ---
IV removed, catheter intact and site benign. Applied folded 4x4 gauze and tape to stop bleeding.
[2016-12-18 06:44] LABS: BASOPHILS # (AUTO) 0.2 K/uL (0.00-0.22); BASOPHILS % (AUTO) 2.8 % (0.0-2.0); EOSINOPHILS # (AUTO) 0.3 K/uL (0-0.4); EOSINOPHILS % (AUTO) 3.6 % (0.0-4.0); HEMATOCRIT 32.8 % (36-52); HEMOGLOBIN 10.3 g/dL (12.0-18.0); LYMPHOCYTES # (AUTO) 0.5 K/uL (2.0-11.5); LYMPHOCYTES % (AUTO) 7.2 % (20.5-51.1); MEAN CORPUSCULAR HEMOGLOBIN 31 pg (27-31); MEAN CORPUSCULAR HGB CONC 31 g/dL (33-37); MEAN CORPUSCULAR VOLUME 99 fL (80-94); MONOCYTES # (AUTO) 0.6 K/uL (0.8-1.0); MONOCYTES % (AUTO) 7.3 % (1.7-9.3); NEUTROPHILS % (AUTO) 79.1 % (42.2-75.2); PLATELET COUNT (AUTO) 110 K/uL (140-450); RED BLOOD CELL COUNT(AUTO) 3.31 MIL/uL (4.20-6.10); RED CELL DISTRIBUTION WIDTH 14.2 % (11.6-13.7)
[2016-12-18 07:00] LABS: ANION GAP 13.4 (8-16); CALCIUM 7.4 mg/dL (8.5-10.1); CARBON DIOXIDE 31.2 mmol/L (21-32); POTASSIUM 4.6 mmol/L (3.5-5.1)
--- NOTE | 2016-12-18 07:05 | NUR ---
Patient will be admitted to care of DR MANNING. Admited to TELE 115. Will go to room 115. Belongings list completed. Report to RILEY HAYNES .
[2016-12-18 07:13] LABS: MAGNESIUM 2.1 mg/dL (1.8-2.4); PHOSPHORUS 6.8 mg/dL (2.5-4.9)
[2016-12-18 07:18] LABS: WHITE BLOOD COUNT (AUTO) 7.6 K/uL (4.8-10.8)
[2016-12-18 07:40] VITALS: BP 103/53
--- NOTE | 2016-12-18 07:40 | NUR ---
ADMITTED PT FROM ER, ALERT ORIENTED X4, ON 02 AT 2LPM VIA NC. TRANSFERRED TO BED SAFELY AND COMFORTABLY. ON ISOLATION CONTACT PRECAUTION , HX MRSA. DENIES ANY PAIN OR DISCOMFORT. NO SIGNS AND SYMPTOMS OF ACUTE DISTRESS NOTED. SKIN WARM AND DRY TO TOUCH. BODY ASSESSMENT DONE. AV SHUNT NOTED ON LAYNE, INTACT, NO BLEEDING OR DISCHARGE NOTED. IV NOTED ON HAIM G20. LEFT BUTTOCK ULCER NOTED, INITIAL WOUND CARE DONE PER PROTOCOL. PER H&P PT MISSED LAST DIALYSIS 12-06-2016. DENIES ANY ABDOMINAL DISCOMFORT AT THIS TIME, POSITIVE GASTRIC SOUNDS NOTED ON FOUR QUADRANTS. PT HAS BLE BKA. ORIENTED TO HOSPITAL ENVIRONMENT. SAFETY PRECAUTION IN PLACE. CALL LIGHT WITHIN REACH. PT BELONGING ON BEDSIDE.
[2016-12-18] MEDS: BLOOD GLUCOSE MONITORING 1 DEV DEV FS SCH ×4 (08:08→20:40)
[2016-12-18] MEDS: VIT-B COMP/VIT-C/FOLIC ACID 1 TAB PO SCH (08:24)
[2016-12-18] MEDS: ASPIRIN 81 MG TAB.CHEW PO SCH (08:24)
[2016-12-18] MEDS ORDERED: DOCUSATE SODIUM 100 MG GELCAP PO SCH (09:00)
[2016-12-18] MEDS ORDERED: CARVEDILOL 3.125 MG TAB PO SCH ×2 (09:00→17:00)
[2016-12-18] MEDS ORDERED: cloNIDine 0.1 MG TAB PO SCH (09:00)
[2016-12-18] MEDS ORDERED: amLODIPine 5 MG TAB PO SCH (09:00)
[2016-12-18] MEDS ORDERED: LISINOPRIL 20 MG TAB PO SCH (09:00)
--- NOTE | 2016-12-18 09:10 | NUR ---
PATIENT HAS BEEN SCREENED AND CATEGORIZED MODERATE NUTRITION RISK. PATIENT WILL BE SEEN WITHIN 3-5 DAYS OF ADMISSION. 12/20/16-12/22/[address] Addendum: 12/19/16 at [address] [facility] CONSULT AND REFERRAL RECEIVED AFTER PT INITIAL NUTRITION SCREEN. PATIENT HAS BEEN RESCREENED AND RECATEGORIZED HIGH NUTRITION RISK. PATIENT WILL BE SEEN WITHIN 1-2 DAYS OF ADMISSION. 12/18/16-12/19/[address]
[2016-12-18] MEDS ORDERED: ALBUTEROL SULFATE/IPRATROPIU 3 ML SOL IH PRN ×2 (10:00→14:11)
[2016-12-18 10:25] LABS: BLOOD GAS PH 7.336 (7.35-7.45)
[2016-12-18 10:27] LABS: BLOOD GAS HCO3 27.5 mmol/L; BLOOD GAS PCO2 52.7 mmHg (20-50); BLOOD GAS PO2 71.1 mmHg
--- NOTE | 2016-12-18 10:27 | NUR ---
G DRAWN ON RB WITHOUT INCIDENT AND RESULTS GIVEN TO DR. THOMPSON
[2016-12-18 10:28] LABS: BLOOD GAS O2 SAT% 91.1 % (92.0-98.5)
[2016-12-18] MEDS: INSULIN LISPRO SLIDING SCALE 100 UNITS/ML VIAL SUBQ PRN ×2 (11:15→20:49)
--- NOTE | 2016-12-18 11:52 | NUR ---
WAS SEEN BY JANE HAYNES FROM [facility], RECEIVED HD ORDER FROM DR. PAZ FOR TODAY. PT AWARE. CONTINUE TO MONITOR.
[2016-12-18 12:00] VITALS: BP 102/60
[2016-12-18] MEDS ORDERED: THERAHONEY GEL 42.5 GM TP PRN (12:25)
[2016-12-18] MEDS ORDERED: Z-GUARD PASTE TP PRN (12:30)
[2016-12-18] MEDS ORDERED: INFLUENZA VIRUS VACCINE QUAD 0.5 ML SYR IMVAC SCH (12:30)
--- NOTE | 2016-12-18 13:00 | NUR ---
PT STARTED ON HD ORDERED. TOLERATING WELL CONTINUE TO MONITOR.
[2016-12-18] MEDS: ALBUTEROL SULFATE/IPRATROPIU 3 ML SOL IH SCH ×2 (13:04→19:51)
[2016-12-18] MEDS: Z-GUARD PASTE TP SCH (13:09)
[2016-12-18] MEDS: THERAHONEY GEL 42.5 GM TP SCH (13:09)
--- NOTE | 2016-12-18 13:16 | NUR ---
DECREASED FIO2 TO 3L N\C POST HHN SPO2 95
--- NOTE | 2016-12-18 13:43 | NUR ---
FURNACE COMBINATION ANALYST note (bedside swallow evaluation attempted) 0220. FURNACE COMBINATION ANALYST came to provide bedside swallow evaluation; however, pt currently undergoing dialysis at this time. Per processing archivist, pt's dialysis will last for another 2.5 hours. FURNACE COMBINATION ANALYST will reattempt tomorrow, as pt available/able to participate safely, as appropriate. PVE: FURNACE COMBINATION ANALYST discussed with RN (Melissa) and change control specialist (Yoselin).
[2016-12-18] MEDS ORDERED: ALBUMIN HUMAN 25% 100 ML IV SCH (14:10)
[2016-12-18 16:00] VITALS: BP 94/47
--- NOTE | 2016-12-18 16:00 | NUR ---
PT FINISHED HD, TOLERATED WELL. PT ALERT AND RESPONSIVE, NO SIGNS OF ACUTE DISTRESS. OUTPUT 1L PER REPORT BY JANE HAYNES FROM [facility]. CONTINUE TO MONITOR.
[2016-12-18] MEDS ORDERED: PIPER/TAZO 2.25GM/D5W PREMIX 50 ML IV SCH (16:07)
--- NOTE | 2016-12-18 18:54 | NUR ---
PT IN BED, RESTING WELL. NO SIGNS OF ACUTE DISTRESS. ENDORSED TO ONCOMING AFTER SCHOOL COORDINATOR NURSE FOR CONTINUITY OF CARE.
[2016-12-18] MEDS: BUDESONIDE 0.5 MG/2 ML NEBU INH SCH (19:50)
[2016-12-18 20:00] VITALS: BP 126/69
--- NOTE | 2016-12-18 20:15 | NUR ---
SEEN PT AWAKE, ALERT W/ HOB ELEVATED TO 90 DEGREES. PT DENIES ANY SHORTNESS OF BREATH. INITIAL ASSESSMENT DONE. VITAL SIGNS CHECKED. PT IS ON 4L O2 VIA NASAL CANNULA. PT'S RT UPPER ARM IV NOT INFUSING. WILL INSERT NEW IV. PT WANTS TO USE BATHROOM BUT REFUSED BEDPAN AND SAID HE WANTS TO USE WHEELCHAIR TO GO BATHROOM. OFFERED BEDSIDE COMMODE AND AGREED. BUT PT STATES HE WON'T GO YET RIGHT NOW. WILL PROVIDE COMMODE. SAFETY AND ISOLATION REINFORCED. CALL LIGHT W/IN REACH.
--- NOTE | 2016-12-18 20:40 | NUR ---
BLOOD SUGAR CHECKED:171. WILL COVER W/ INSULIN PER COVERAGE. DUE MEDS GIVEN W/ TEACHINGS. PT TOLERATED TAKING THE MEDS. NO ASPIRATION NOTED. PT ASKED FOR VANILLA PUDDING. ATTEMPTED TO INSERT IVX2. DALLAS LICONA ATTEMPTED ONCE THEN SECOND TIME USING ACCUVEIN NEW IV INSERTED ON RT MEDIAL FA W/ GOOD BLOOD RETURN. PT WANTS TO LAY DOWN IN BED. PT REPOSITIONED ON HIS LEFT SIDE. CALL LIGHT W/IN REACH.
[2016-12-18] MEDS: LACTULOSE 20 GM/30 ML UDC PO SCH (20:49)
[2016-12-18] MEDS: DOCUSATE SODIUM 250 MG GELCAP PO SCH (20:49)
[2016-12-18] MEDS: SIMVASTATIN 20 MG TAB PO SCH (20:50)
--- NOTE | 2016-12-18 21:10 | NUR ---
PT CALLED SAYING HE CAN'T BREATHE. PT'S HOB ELEVATED TO 90 DEGREES AND EXTRA PILLOW IN PLACED ON HIS BACK. WILL CONTINUE TO MONITOR.
--- NOTE | 2016-12-18 21:50 | NUR ---
SPOKE TO PHARMACY REGARDING PT'S LAST DOSE OF ATB CLOSE TO NEXT DOSE. SHE SAID TO GIVE IT AT 2230 TO CATCH UP W/ THE SCHEDULE.
--- NOTE | 2016-12-18 22:35 | NUR ---
PT AWAKE, APPEARS COMFORTABLE. IV ATB GIVEN W/ TEACHINGS.
[2016-12-18] MEDS: PIPER/TAZO 2.25GM/D5W PREMIX 50 ML IV SCH (22:42)
--- NOTE | 2016-12-18 23:00 | NUR ---
SEEN PT APPEARS ASLEEP. IV ATB INFUSING.
[2016-12-19] VITALS (9 sets, daily range): BP systolic 81–106; BP diastolic 44–63
[2016-12-19] MEDS: Z-GUARD PASTE TP SCH ×2 (01:00→14:03)
[2016-12-19] MEDS: ALBUTEROL SULFATE/IPRATROPIU 3 ML SOL IH SCH ×4 (01:28→19:30)
--- NOTE | 2016-12-19 04:35 | NUR ---
SEEN PT AWAKE. PT DENIES ANY DISCOMFORT. NO RESPIRATORY DISTRESS NOTED. PT SAID HE WILL HAVE BM. TOLD HIM TO USE CALL LIGHT WHEN FINISHED. PT VERBALIZED UNDERSTANDING.
[2016-12-19] MEDS: PIPER/TAZO 2.25GM/D5W PREMIX 50 ML IV SCH ×3 (04:38→21:18)
--- NOTE | 2016-12-19 06:10 | NUR ---
PT COMPLAINING OF SHORTNESS OF BREATH. O2 INCREASED TO 4L VIA NC. O2SAT 80'S. PT ENCOURAGED TO RELAX. TALKED TO RT AND SAID SHE'S COMING. INFORMED PT.
[2016-12-19] MEDS: BUDESONIDE 0.5 MG/2 ML NEBU INH SCH ×2 (06:25→19:30)
--- NOTE | 2016-12-19 06:30 | NUR ---
RT AT BEDSIDE GIVING BREATHING TREATMENT.
--- NOTE | 2016-12-19 06:45 | NUR ---
BLOOD SUGAR CHECKED:92. NO COVERAGE NEEDED. PT VERBALIZED FEELING BETTER. CALL LIGHT W/IN REACH.
--- NOTE | 2016-12-19 07:05 | NUR ---
REPORT GIVEN TO DAYSHIFT NURSE.
--- NOTE | 2016-12-19 07:06 | NUR ---
PT ALERT AND ORIENTED, RESTING WELL IN BED. NO SIGNS OF ACUTE DISTRESS. WITH O2 AT 4L/MIN VIA NC. SKIN IS WARM AND DRY. NO SIGNS OF ANY BOWEL OR BLADDER DISCOMFORT AT THIS TIME. NOTED LEFT UPPER ARM AV SHUN WITH POSITIVE BRUIT AND THRILL. DRESSING ON SACRAL AND BUTTOCKS AREA KEPT CLEAN DRY AND INTACT. OFFLOAD TO PRESSURE AREAS. NO C/O ANY PAIN AT THIS TIME, CONTACT SAFETY PRECAUTIONS MAINTAINED. CALL LIGHT WITHIN REACH.
[2016-12-19] MEDS: BLOOD GLUCOSE MONITORING 1 DEV DEV FS SCH ×4 (07:36→21:17)
[2016-12-19] MEDS ORDERED: CARVEDILOL 3.125 MG TAB PO SCH (08:00)
[2016-12-19] MEDS ORDERED: ECOTRIN 81 MG TABEC PO SCH (09:00)
[2016-12-19] MEDS ORDERED: amLODIPine 5 MG TAB PO SCH (09:00)
[2016-12-19] MEDS ORDERED: VIT-B COMP/VIT-C/FOLIC ACID 1 TAB PO SCH (09:00)
[2016-12-19] MEDS ORDERED: LISINOPRIL 20 MG TAB PO SCH (09:00)
[2016-12-19] MEDS ORDERED: cloNIDine 0.1 MG TAB PO SCH (09:00)
[2016-12-19] MEDS: LISINOPRIL 20 MG TAB PO SCH (09:00)
[2016-12-19] MEDS: LACTULOSE 20 GM/30 ML UDC PO SCH ×2 (09:12→21:18)
[2016-12-19] MEDS: VIT-B COMP/VIT-C/FOLIC ACID 1 TAB PO SCH (09:13)
[2016-12-19] MEDS: DOCUSATE SODIUM 250 MG GELCAP PO SCH ×2 (09:13→21:18)
[2016-12-19] MEDS: POLYETHYLENE GLYCOL 17 GM/PKT PO SCH ×2 (09:13→21:18)
[2016-12-19] MEDS: ASPIRIN 81 MG TAB.CHEW PO SCH (09:13)
--- NOTE | 2016-12-19 09:22 | NUR ---
REHAB NOTES PER CHARGE NURSE, ST EVAL WAS TO BE CANCELLED AND RESIDENT MADE AWARE, PT ALREADY EATING PO DIET RECOMMENDATIONS WITH NO SIGNS OF DIFFICULTY. CHARGE NURSE PAGED RESIDENT TO CANCEL REQUEST FOR SWALLOW EVAL
--- NOTE | 2016-12-19 10:15 | NUR ---
RECEIVED NEW ORDERS FROM IMELDA PIERRE. CALLED [facility] FOR APPOINTMENT, LEFT A MESSAGE AND PAGED. AWAITING FOR RESPONSE.
--- NOTE | 2016-12-19 11:30 | NUR ---
NOTED PT'S BP DECREASED, 81/46. DR PUCKETT AND CONSTANTIN ON FLOOR AND MADE AWARE. PT AWAKE AND RESPONSIVE. DENIES OF HEADACHE DIZZINESS AND SOB. CONTINUE TO MONITOR.
[2016-12-19] MEDS ORDERED: NOREPINEPHRINE 4 MG in DEXTROSE 5% 250 ML IV PRN (11:55)
--- NOTE | 2016-12-19 11:56 | NUR ---
BP INCREASED TO 94/47, DR. PUCKETT AWARE.
[2016-12-19 12:20] LABS: BASOPHILS # (AUTO) 0.3 K/uL (0.00-0.22); BASOPHILS % (AUTO) 4.7 % (0.0-2.0); EOSINOPHILS # (AUTO) 0.2 K/uL (0-0.4); EOSINOPHILS % (AUTO) 3.1 % (0.0-4.0); HEMATOCRIT 30.6 % (36-52); HEMOGLOBIN 9.6 g/dL (12.0-18.0); LYMPHOCYTES # (AUTO) 0.4 K/uL (2.0-11.5); LYMPHOCYTES % (AUTO) 6.3 % (20.5-51.1); MEAN CORPUSCULAR HEMOGLOBIN 31 pg (27-31); MEAN CORPUSCULAR HGB CONC 31 g/dL (33-37); MEAN CORPUSCULAR VOLUME 100 fL (80-94); MONOCYTES # (AUTO) 0.6 K/uL (0.8-1.0); MONOCYTES % (AUTO) 8.7 % (1.7-9.3); NEUTROPHILS # (AUTO) 5.5 K/uL (1.8-7.7); NEUTROPHILS % (AUTO) 77.2 % (42.2-75.2); PLATELET COUNT (AUTO) 101 K/uL (140-450); RED BLOOD CELL COUNT(AUTO) 3.06 MIL/uL (4.20-6.10); RED CELL DISTRIBUTION WIDTH 14.4 % (11.6-13.7)
[2016-12-19 12:39] LABS: ANION GAP 12.2 (8-16); CALCIUM 7.7 mg/dL (8.5-10.1); CARBON DIOXIDE 31.5 mmol/L (21-32); POTASSIUM 4.7 mmol/L (3.5-5.1)
[2016-12-19 12:44] LABS: CREATININE 7.8 mg/dL (0.6-1.3)
[2016-12-19 12:46] LABS: MAGNESIUM 1.8 mg/dL (1.8-2.4); PHOSPHORUS 4.7 mg/dL (2.5-4.9)
--- NOTE | 2016-12-19 13:00 | NUR ---
PT REFUSES HHN EATING
--- NOTE | 2016-12-19 13:46 | NUR ---
DECREASE FIO2 TO 3L N\C POST HHN SPO2 97
[2016-12-19] MEDS: THERAHONEY GEL 42.5 GM TP SCH (14:03)
--- NOTE | 2016-12-19 15:29 | NUR ---
12/19/16 RD INITIAL ASSESSMENT COMPLETED PLEASE REFER TO NUTRITION ASSESSMENT UNDER CARE ACTIVITY FOR ESTIMATED NUTRITIONAL NEEDS. RD RECOMMENDATIONS: 1. CONSIDER RENAL DIET WITH TEXTURE MODIFICATIONS PER SWALLOW EVALUATION RECOMMENDATIONS 2. RD LEFT RENAL, DM DIET EDUCATIONAL HANDOUTS AT BEDSIDE 3. RD WILL F/U 2-3 DAYS; HIGH RISK. MORENA JONES RD
--- NOTE | 2016-12-19 15:50 | NUR ---
PT CONSENTED FOR PROCEDURE, US GUIDED THORACENTESIS, PERFORMED AT BEDSIDE WITH RADIOLOGIST. TOLERATING WELL. PT AWAKE ALERT AND RESPONSIVE, NO SIGNS OF ACUTE DISTRESS. NO C/O PAIN. CONTINUE TO MONITOR.
--- NOTE | 2016-12-19 16:10 | NUR ---
THORACENTESIS DONE WITH RADIOLOGIST AND WAS ABLE TO OBTAIN 1500 CC OF LIGHT SERGIO FLUID. PUNCTURE SITE COVERED WITH DRY DRESSING. NO SIGNS OF ANY BLEEDING OR DISCHARGE. PT NO C/O OF PAIN, NO SIGNS OF ACUTE DISTRESS. CONTINUE TO MONITOR.
[2016-12-19] MEDS: CARVEDILOL 3.125 MG TAB PO SCH (16:29)
[2016-12-19] MEDS: MUPIROCIN 2% OINT 22 GM TUBE TP SCH (18:44)
--- NOTE | 2016-12-19 18:45 | NUR ---
PT AWAKE, RESPONSIVE, NO SIGNS OF ACUTE DISTRESS. WILL ENDORSE TO ONCOMING PORTABLE FEED MILL OPERATOR NURSE FOR CONTINUITY OF CARE.
--- NOTE | 2016-12-19 19:00 | NUR ---
RECEIVED REPORT FROM DAY NURSESHIRA. PATIENT RESTING IN BED, WATCHING TELEVISION. NO RESPIRATORY DISTRESS, SOB, OR DISCOMFORT. INITIAL ASSESSMENT AND BODY CHECK DONE. PATIENT IS AOX3, IV ACCESS TO RIGHT FOREARM 22G, PATENT, DIALYSIS ACCESS TO LEFT UPPER ARM. SACRAL AND BUTTOCK WOUNDS NOTED, DRESSING DRY AND INTACT TO BUTTOCKS WOUND. DISCUSSED PLAN OF CARE, MEDICATION REGIMENT, AND PAIN MANAGEMENT WITH PATIENT. PATIENT VERBALIZED UNDERSTANDING. PLACED PATIENT ON SAFETY/FALL/ASPIRATION PRECAUTIONS. CALL LIGHT LEFT WITHIN REACH, WILL CONTINUE TO MONITOR.
[2016-12-19] MEDS: CHLORHEXADINE GLUC 2% CLOTH TP SCH (20:41)
[2016-12-19 21:12] LABS: ALBUMIN,BODY FLUID 1.9 g/dL; GLUCOSE,BODY FLUID 141 mg/dL; PROTEIN, BODY FLUID 4.4 g/dL
[2016-12-19 21:17] LABS: APPEARANCE,SPUN,BODY FLUID CLEAR (CLEAR); APPEARANCE,UNSPUN,BODY FLUID CLEAR (CLEAR); COLOR,BODY FLUID YELLOW (LT YELLOW); RBC, BODY FLUID 54 /cu. mm.; SPECIMENTYPE,BODY FLUID THORACENTESIS; TOTAL VOLUME,BODY FLUID 1150 mL; WBC, BODY FLUID 0 /cu. mm.
[2016-12-19] MEDS: SIMVASTATIN 20 MG TAB PO SCH (21:18)
--- NOTE | 2016-12-19 22:30 | NUR ---
PATIENT SITTING UP IN BED, WATCHING TELEVISION. NO RESPIRATORY DISTRESS, SOB, OR DISCOMFORT. CALL LIGHT LEFT WITHIN REACH, WILL CONTINUE TO MONITOR.
[2016-12-20] VITALS (16 sets, daily range): BP systolic 84–114; BP diastolic 42–70
[2016-12-20] MEDS: Z-GUARD PASTE TP SCH ×2 (00:19→13:57)
--- NOTE | 2016-12-20 00:46 | NUR ---
PATIENT IN BED, SLEEPING. NO RESPIRATORY DISTRESS, SOB, OR DISCOMFORT. CALL LIGHT LEFT WITHIN REACH, WILL CONTINUE TO MONITOR.
[2016-12-20] MEDS: ALBUTEROL SULFATE/IPRATROPIU 3 ML SOL IH SCH ×4 (00:49→19:45)
--- NOTE | 2016-12-20 03:13 | NUR ---
PATIENT ASLEEP. NO RESPIRATORY DISTRESS, SOB, OR DISCOMFORT. CALL LIGHT LEFT WITHIN REACH, WILL CONTINUE TO MONITOR.
[2016-12-20] MEDS: PIPER/TAZO 2.25GM/D5W PREMIX 50 ML IV SCH ×3 (04:43→20:57)
--- NOTE | 2016-12-20 06:02 | NUR ---
PATIENT SLEEPING. NO RESPIRATORY DISTRESS,S OB, OR DISCOMFORT. CALL LIGHT LEFT WITHIN REACH, WILL CONTINUE TO MONITOR.
[2016-12-20] MEDS: BLOOD GLUCOSE MONITORING 1 DEV DEV FS SCH ×4 (06:29→20:46)
--- NOTE | 2016-12-20 07:30 | NUR ---
REPORT GIVEN TO DAY CHARGE NURSE, MINOO, FOR CONTINUITY OF CARE. PATIENT RESTING IN BED, STABLE. NO RESPIRATORY DISTRESS, SOB, OR DISCOMFORT. ALL NEEDS ATTENDED TO DURING SHIFT, CALL LIGHT LEFT WITHIN REACH.
[2016-12-20] MEDS: BUDESONIDE 0.5 MG/2 ML NEBU INH SCH ×2 (07:40→19:45)
[2016-12-20] MEDS: CARVEDILOL 3.125 MG TAB PO SCH ×2 (08:00→17:00)
--- NOTE | 2016-12-20 08:00 | NUR ---
RECEIVED PATIENT IN BED SITTING POSITION WITH O2 3L/NC . AWAKE, A/OX4 NO S/S OF RESP DISTRESS NOTED , BILATERAL BKA NOTED PRESSURE ULCER ON BUTTOCKS SCHEDULE FOR DEBRIDEMENT BY DR HIDALGO. AV SHUNT ON LEFT UPPER ARM BRUIT AND THRILL. DIALYSIS SCHEDULE TODAY. IV SITE RFA GAUGE 22 INTACT AND PATNT. PLAN OF CARE DISCUSSED WITH THE PATIENT VITALS STABLE WILL CONTINUE TO MONITOR.
[2016-12-20] MEDS: LACTULOSE 20 GM/30 ML UDC PO SCH ×2 (09:00→20:47)
[2016-12-20] MEDS: POLYETHYLENE GLYCOL 17 GM/PKT PO SCH ×2 (09:00→20:47)
[2016-12-20] MEDS: LISINOPRIL 20 MG TAB PO SCH (09:00)
[2016-12-20] MEDS: ASPIRIN 81 MG TAB.CHEW PO SCH (09:00)
[2016-12-20] MEDS: DOCUSATE SODIUM 250 MG GELCAP PO SCH ×2 (09:00→20:47)
[2016-12-20] MEDS: VIT-B COMP/VIT-C/FOLIC ACID 1 TAB PO SCH (09:00)
--- NOTE | 2016-12-20 09:00 | NUR ---
HOLD ALL DUE MEDS PER ORDER ,DIALYSIS NURSE IN THE UNIT TO START DIALYSIS.
--- NOTE | 2016-12-20 10:15 | NUR ---
I GOT A CALL FROM RADIOLOGY REGARDING 50 % PNEUMOTHORAX , NOTIFIED DR PUCKETT(RESIDENT)
[2016-12-20] MEDS ORDERED: ALBUMIN HUMAN 25% 50 ML IV SCH (10:26)
--- NOTE | 2016-12-20 10:30 | NUR ---
PT NOTES CHART REVIEWED, BUT UNABLE TO SEE PATIENT D/T BEING TRANSFERRED TO ICU UNIT. RN MADE AWARE, WILL FOLLOW UP PATIENT WHEN NEW ORDER RECEIVED BY MD WHEN APPROPRIATE. PVEx1
--- NOTE | 2016-12-20 10:45 | NUR ---
TRANSFERRED PATIENT TO ICU AND REPORT GIVEN TO LYNDON HAYNES, NOTIFIED DIALYSIS NURSE TO START DIALYSIS IN ICU.
--- NOTE | 2016-12-20 10:45 | NUR ---
RECEIVED PT FROM MST RN VIA BED. PT SEEN AT BEDSIDE. AAOX4, IN MILD DISTRESS; PT C/O SOB, ON 3L NC WITH O2 SAT AT 94%. VITAL SIGNS 98.3F TEMP, HR 93, BP 103/57, O2 SAT AT 94%, 25 RR. PT HAS RIGHT FA 22G IV SALINE LOCKED AT THIS TIME. AV SHUNT ON LEFT UPPER ARM NOTED. PT PLACED ON CORPORATE SERVICES MANAGER RUNNING SR WITH BBB. PT HAS BAND-AID ON RIGHT FLANK FROM RIGHT THORACENTESIS DONE YESTERDAY. PT HAS BILATERAL BKA'S. WOUND NOTED ON BUTTOCKS COVERED WITH DRESSING. SAFETY MEASURES CHECKED, CALL LIGHT LEFT AT BEDSIDE. WILL CONTINUE TO MONITOR.
--- NOTE | 2016-12-20 11:00 | NUR ---
DR PUCKETT AND KATHLEEN AT BEDSIDE ASSESSING PATIENT. MD'S ARE TALKING TO PATIENT ABOUT CHEST TUBE INSERTION. PER PATIENT, HE WOULD LIKE TO WAIT ON MAKING A DECISION AND TO CALL HIS DAUGHTER.
--- NOTE | 2016-12-20 11:00 | NUR ---
PT REFUSED TO BE TURNED TO THE SIDE. HE WANTS TO SIT UP SO HE "CAN BREATH BETTER".
--- NOTE | 2016-12-20 11:08 | NUR ---
SPOKE WITH DAREN PATIENT'S DAUGHTER REGARDING TRANSFER PATIENT TO ICU.
--- NOTE | 2016-12-20 11:35 | NUR ---
DR PUCKETT AND DALLAS SILVESTRE, TALKING TO DAREN, PT'S DAUGHTER ON CHEST TUBE INSERTION. PER DAREN, SHE IS OK WITH HER FATHER GETTING A CHEST TUBE INSERTED. CONSENT FROM DAREN WITNESSED BY CHERRY RN.
[2016-12-20] MEDS ORDERED: LIDOCAINE/EPI 1% 1:100000 20 ML VIAL INJ SCH (11:40)
--- NOTE | 2016-12-20 11:40 | NUR ---
PT AGREES TO SIGN CONSENT FOR RIGHT CHEST TUBE. DR WANG AT BEDSIDE TO WITNESS.
--- NOTE | 2016-12-20 12:20 | NUR ---
DR. FABIAN, DR. WANG, DR. PUCKETT, AND MEDICAL STUDENT PRESENT AT BEDSIDE. TIME OUT CALLED.
--- NOTE | 2016-12-20 12:42 | NUR ---
CHEST TUBE SIZE [address] FABIAN AND CONNECTED TO [employer] CHEST TUBE TO WALL SUCTION; WATER SEAL AT 20 CM WATER PRESSURE. 1500 CC OF STRAW COLORED DRAINAGE NOTED.
[2016-12-20] MEDS ORDERED: MORPHINE SULFATE 2 MG/ML SYR IVP SCH (13:11)
[2016-12-20] MEDS: THERAHONEY GEL 42.5 GM TP SCH (13:57)
--- NOTE | 2016-12-20 14:00 | NUR ---
PT REFUSES TO BE TURNED. INFORMED PT THAT HE HAS A PRESSURE ULCER ON HIS BUTTOCK AND IT WILL MAKE IT WORSE IF PRESSURE IS NOT OFFLOADED. PT VERBALIZED UNDERSTANDING, BUT IS ADAMANT ON SITTING UP BECAUSE HE FEELS LIKE HE BREATHS BETTER. WILL CONTINUE TO MONITOR.
--- NOTE | 2016-12-20 14:04 | NUR ---
PER DR PUCKETT, DO NOT GIVE SCHEDULED MORPHINE D/T PT BP 91/51. ROUTINE MEDICATIONS ADMINISTERED WITH EDUCATION. PT VERBALIZED UNDERSTANDING. WILL CONTINUE TO MONITOR.
--- NOTE | 2016-12-20 14:29 | NUR ---
PT FEELING ANXIOUS AND RESP RATE AT 33, REQUESTING FOR SOMETHING TO CALM HIM DOWN AND EAT. DR PUCKETT NOTIFIED. MD WILL PUT IN ORDERS.
[2016-12-20] MEDS ORDERED: LORazepam 2 MG/ML VIAL IVP SCH (14:37)
--- NOTE | 2016-12-20 14:47 | NUR ---
ATIVAN ADMINISTERED FOR ANXIETY. PT VERBALIZED UNDERSTANDING. WILL CONTINUE TO MONITOR.
--- NOTE | 2016-12-20 15:10 | NUR ---
NIRMALA RN, TALKING TO DR. PAZ ON PHONE UPDATING MD ON PATIENT CONDITION. PER NIRMALA, DR PAZ INFORMED THAT PATIENT DID NOT GET HD TODAY D/T CHEST TUBE PROCEDURE TODAY. MD AWARE AND WILL SCHEDULE FOR HD TOMORROW.
--- NOTE | 2016-12-20 15:30 | NUR ---
DR. KILLIAN AT BEDSIDE ASSESSING PATIENT. MD UPDATED ON PATIENT CONDITION. MD NOTIFIED THAT BP IS LOW AND CHEST TUBE OUTPUT IS 1800CC AT THIS TIME.
[2016-12-20 15:51] LABS: BASOPHILS % (AUTO) 0.5 % (0.0-2.0); EOSINOPHILS # (AUTO) 0.2 K/uL (0-0.4); EOSINOPHILS % (AUTO) 2.4 % (0.0-4.0); HEMATOCRIT 31.9 % (36-52); HEMOGLOBIN 9.8 g/dL (12.0-18.0); LYMPHOCYTES # (AUTO) 0.3 K/uL (2.0-11.5); LYMPHOCYTES % (AUTO) 4.6 % (20.5-51.1); MEAN CORPUSCULAR HEMOGLOBIN 31 pg (27-31); MEAN CORPUSCULAR HGB CONC 31 g/dL (33-37); MEAN CORPUSCULAR VOLUME 100 fL (80-94); MONOCYTES # (AUTO) 0.4 K/uL (0.8-1.0); MONOCYTES % (AUTO) 5.8 % (1.7-9.3); NEUTROPHILS # (AUTO) 5.7 K/uL (1.8-7.7); NEUTROPHILS % (AUTO) 86.7 % (42.2-75.2); PLATELET COUNT (AUTO) 108 K/uL (140-450); RED CELL DISTRIBUTION WIDTH 14.6 % (11.6-13.7); WHITE BLOOD COUNT (AUTO) 6.6 K/uL (4.8-10.8)
--- NOTE | 2016-12-20 16:00 | NUR ---
PT TURNED AND REPOSITIONED FOR COMFORT.
[2016-12-20 16:02] LABS: ANION GAP 11.8 (8-16); CALCIUM 7.8 mg/dL (8.5-10.1); CARBON DIOXIDE 33.1 mmol/L (21-32); POTASSIUM 5.9 mmol/L (3.5-5.1)
[2016-12-20 16:04] LABS: CREATININE 9.3 mg/dL (0.6-1.3)
--- NOTE | 2016-12-20 16:10 | NUR ---
NEPHROLOGY IS MAKING ROUND AND MADE AWARE OF PATIENT'S SERUM K 5.9 , BUN 57 AND CREATININE 9.3. PER : CALL DIALYSIS NURSE TO DO HEMODIALYSIS STAT.
--- NOTE | 2016-12-20 16:15 | NUR ---
CALLED [facility] AND SPOKE TO SAIMA MADDOX ,SCHEDULED PATIENT FOR STAT HEMODIALYSIS.
[2016-12-20] MEDS: MUPIROCIN 2% OINT 22 GM TUBE TP SCH (17:54)
--- NOTE | 2016-12-20 17:55 | NUR ---
DR. PUCKETT AT BEDSIDE TALKING TO PATIENT ABOUT HD AND CENTRAL LINE PLACEMENT. PT REFUSED CENTRAL LINE PLACEMENT AND STATED THAT HE DOES NOT WANT DIALYSIS TODAY BECAUSE HE "FEELS TOO WEAK". RNKRISTEL, AT BEDSIDE PRESENT TO WITNESS. DR. PUCKETT STATED THAT HE WILL ALSO TALK TO DAREN, PT'S DAUGHTER, AND PT REPLIED, "IT DON'T MATTER". Addendum: 12/20/16 at 1759 by Kristel Goldstein RN PT IS ALERT AND ORIENT X4 AT THIS TIME. ABLE TO ANSWER HIS NAME, DATE, WHERE HE IS, AND WHY HE IS HERE.
--- NOTE | 2016-12-20 18:02 | NUR ---
BG 68. APPLE JUICE AND VANILLA PUDDING OFFERED FOR PATIENT. NOW BG IS 100.
--- NOTE | 2016-12-20 18:10 | NUR ---
DR. PUCKETT PRESENT AT BEDSIDE TALKING TO PATIENT ABOUT CODE STATUS. PER PATIENT HE DOES NOT WANT CPR, DEFIB, INTUBATION IF HIS HEART STOPS AT ANY TIME. PT STATED, "IF GOD TAKES ME , THEN HE TAKES ME". PT STATED HE IS WILLING TO HAVE HD TODAY, BUT STILL DOES NOT CENTRAL LINE PLACEMENT. PT IS AAOX4 AT THIS TIME AND ABOUT TO MAKE DECISIONS ON HIS OWN. PER DR PUCKETT, HE LEFT A MESSAGE FOR DAREN, PT'S DAUGHTER.
--- NOTE | 2016-12-20 18:17 | NUR ---
RIGHT CHEST TUBE OCEAN DRAINAGE SYSTEM CHANGED. PT HAS 2000 CC OUTPUT. NO EVIDENCE OF SUBCUTANEOUS EMPHYSEMA, DECREPITUS NOTED. PT TOLERATED WELL.
[2016-12-20] MEDS ORDERED: NOREPINEPHRINE 4 MG in DEXTROSE 5% 250 ML IV PRN (18:45)
--- NOTE | 2016-12-20 18:45 | NUR ---
CALLED A DIALYSIS CENTER AND SPOKE TO EVELIA MADDOX AGAIN,WHICH SHE STATES THAT SHE WILL SENDING A DIALYSIS NURSE HERE WITHIN 1.5 HOUR.
--- NOTE | 2016-12-20 19:10 | NUR ---
REPORT GIVEN TO DALLAS KING.
--- NOTE | 2016-12-20 19:13 | NUR ---
RECEIVED REPORT FROM DAY NURSE DALLAS HANEY FOR CONTINUATION OF CARE. PT IS SLEEPING BUT IS EASILY AROUSABLE TO NAME CALLING. PT IS AAOX4 AND IS ON 02 VIA N/C AT 3LPM. WELL RIGHT SIDE CHEST TUBE IN PLACE WITH NO SIGNS OR SYMPTOMS OF RESPIRATORY DISTRESS NOTED AT THIS TIME. JUICE WEIGHER SHOWS SR AT THIS TIME. PT HAS RT FA #22 RUNNING NS TKO @5ML/HR. PT HAS LEFT UPPER ARM AV SHUNT. PT HAS BILATERAL BKA. WOUNDS NOTED TO SACRAL AND LEFT BUTTOCK AREA WITH DRESSING COVERED. PT DENIES ANY DISCOMFORT AT THIS TIME. BED IN LOW POSITION. HOB UP. CALL LIGHT LEFT WITHIN REACH. WILL CONTINUE TO CLOSELY MONITOR.
[2016-12-20] MEDS: CHLORHEXADINE GLUC 2% CLOTH TP SCH (20:46)
[2016-12-20] MEDS: SIMVASTATIN 20 MG TAB PO SCH (20:47)
--- NOTE | 2016-12-20 21:05 | NUR ---
PT SITTING UP REQUESTED. NO SOB NOTED AT THIS TIME. WILL CONTINUE TO CLOSELY MONITOR
--- NOTE | 2016-12-20 21:57 | NUR ---
DIALYSIS NURSE JAMIE HERE ON THE UNIT TO HD PATIENT.
[2016-12-20] MEDS ORDERED: ALBUMIN HUMAN 25% 100 ML IV SCH ×2 (22:50)
[2016-12-20] MEDS ORDERED: ALBUMIN HUMAN 25% 100 ML IV ONE (22:53)
[2016-12-20] MEDS: HYDROcodone/APAP 5/325 MG 1 TAB TAB PO PRN (22:58)
--- NOTE | 2016-12-20 22:59 | NUR ---
PT STATED PAIN LEVEL OF 5/10 AT CHEST TUBE SITE. PT MEDICATED ORDERED PRN. WILL CONTINUE TO CLOSELY MONITOR. DIALYSIS NURSE JAMIE AT BEDSIDE.
[2016-12-21] VITALS (39 sets, daily range): BP systolic 59–133; BP diastolic 39–76
--- NOTE | 2016-12-21 00:34 | NUR ---
HEMODIALYSIS TREATMENT TERMINATED BY HD NURSE PER PATIENT'S REQUEST. COMPLETED ONLY 2 HOURS AND 15MINS. PT INSTRUCTED AND EDUCATED THE IMPORTANCE OF HEMODIALYSIS BUT PT STATED HE IS TIRED AND WANTS TO STOP HD TREATMENT. WILL NOTIFY DR. PAZ. NO SIGNS OF DISTRESS AT THIS TIME. WILL CONTINUE TO MONITOR.
[2016-12-21] MEDS: Z-GUARD PASTE TP SCH ×2 (01:02→13:34)
[2016-12-21] MEDS: ALBUTEROL SULFATE/IPRATROPIU 3 ML SOL IH SCH ×4 (01:44→19:59)
--- NOTE | 2016-12-21 03:06 | NUR ---
PT SITTING UP IN BED PER REQUEST. NO SOB NOTED AT THIS TIME. WILL CONTINUE TO CLOSELY MONITOR.
[2016-12-21] MEDS: HYDROcodone/APAP 5/325 MG 1 TAB TAB PO PRN ×2 (03:15→12:15)
--- NOTE | 2016-12-21 03:15 | NUR ---
PT STATED HE WAS HAVING PAIN AT CHEST TUBE SITE. 5/10 MEDICATED ORDERED PRN.
[2016-12-21 04:53] LABS: HEMATOCRIT 30.3 % (36-52); HEMOGLOBIN 9.4 g/dL (12.0-18.0); MEAN CORPUSCULAR HEMOGLOBIN 31 pg (27-31); MEAN CORPUSCULAR HGB CONC 31 g/dL (33-37); MEAN CORPUSCULAR VOLUME 100 fL (80-94); PLATELET COUNT (AUTO) 89 K/uL (140-450); RED BLOOD CELL COUNT(AUTO) 3.02 MIL/uL (4.20-6.10); RED CELL DISTRIBUTION WIDTH 14.2 % (11.6-13.7); WHITE BLOOD COUNT (AUTO) 6.2 K/uL (4.8-10.8)
[2016-12-21] MEDS: PIPER/TAZO 2.25GM/D5W PREMIX 50 ML IV SCH ×3 (05:06→21:14)
[2016-12-21 05:18] LABS: ANION GAP 8.7 (8-16); CALCIUM 7.7 mg/dL (8.5-10.1); CARBON DIOXIDE 33.5 mmol/L (21-32); POTASSIUM 4.2 mmol/L (3.5-5.1)
[2016-12-21 05:22] LABS: MAGNESIUM 1.7 mg/dL (1.8-2.4); PHOSPHORUS 4.7 mg/dL (2.5-4.9)
--- NOTE | 2016-12-21 05:29 | NUR ---
PT REFUSED MORNING CARE AT THIS TIME. WILL ATTEMPT TO OFFER AGAIN LATER. PER PT REQUEST. PT IS SITTING UP IN BED. NO S/S OF RESP DISTRESS. CHEST TUBE STILL IN PLACE. BED IN LOW POSITION. HOB UP CONTACT PRECAUTIONS STILL MAINTAINED. SAFETY PRECAUTIONS MAINTAINED. CALL LIGHT LEFT WITHIN REACH. WILL CONTINUE TO CLOSELY MONITOR.
[2016-12-21 05:30] LABS: BASOPHILS % (MANUAL) 1 % (0-2); EOSINOPHILS % (MANUAL) 2 % (0-4); LYMPHOCYTES % (MANUAL) 7 % (20-46); MONOCYTES % (MANUAL) 10 % (5-12); NEUTROPHILS % (MANUAL) 80 (43-65)
[2016-12-21 05:33] LABS: CREATININE 5.8 mg/dL (0.6-1.3)
--- NOTE | 2016-12-21 06:15 | NUR ---
PT HAVING CHEST X-RAY DONE AT BEDSIDE.
[2016-12-21] MEDS: BLOOD GLUCOSE MONITORING 1 DEV DEV FS SCH ×4 (06:58→21:13)
--- NOTE | 2016-12-21 07:14 | NUR ---
ENDORSED PLAN OF CARE TO DAY NURSE DALLAS MENDIOLA FOR CONTINUITY OF CARE. PT IS STABLE AT THIS TIME
--- NOTE | 2016-12-21 07:30 | NUR ---
RECEIVED REPORT FROM PM SHIFT RN AT BEDSIDE. PT IS AWAKE AND ALERT, ABLE TO MAKE NEEDS KNOWN. PT IS ON 3LPM OXYGEN VIA NASAL CANNULA. RIGHT SIDE CHEST TUBE DRAIN IN PLACE AND FUNCTIONING WELL.NO CREPITUS FELT. PT DENIED ANY PAIN OR DISCOMFORT AT THIS TIME. V/S STABLE. SKIN WARM TO TOUCH. LEFT UPPER ARM AV SHUNT WITH BRUIT AND THRILL PRESENT. RIGHT FOREARM #22G IV ACCESS INTACT AND PATENT TKO. ABDOMEN SOFT, NON DISTENDED, ACTIVE BOWEL SOUNDS IN ALL 4 QUADRANTS. BILATERAL BKA. LEFT BUTTOCK WOUND COVERED WITH DRY DRESSING, INTACT AND NO DRAINAGE NOTED. SAFETY MEASURES AND CONTACT PRECAUTION MAINTAINED. CALL LIGHT WITHIN REACH.
--- NOTE | 2016-12-21 07:45 | NUR ---
AWAKE AND ALERT NO SOB NOTED IN HFW POSITION SATURATION 98% ON SUPPLEMENTAL OXYGEN AT 3 LPM VIA NC PATIENT WITH BREAKFAST TRAY AT THIS TIME VEGETABLE HANDLER TO ATTEMPT HHN THERAPY AT A LATER TIME
[2016-12-21] MEDS: CARVEDILOL 3.125 MG TAB PO SCH ×2 (08:00→17:00)
[2016-12-21] MEDS: BUDESONIDE 0.5 MG/2 ML NEBU INH SCH ×2 (08:16→19:59)
--- NOTE | 2016-12-21 08:16 | NUR ---
AWAKE AND ALERT IN HFW POSITION RECEIVED ON SUPPLEMENTAL OXYGEN AT 3 LPM VIA NC ON AND FUNCTIONING WELL; RIGHT SIDE CHEST AT MID AXILLARY ATRIUM OCEAN CHEST DRAIN ON AND FUNCTIONING WELL CHECK BT MAURY/RN AND RAWI/RN TITRATED FIO2 TO 2LPM MAURY/RN AWARE
[2016-12-21] MEDS: LISINOPRIL 20 MG TAB PO SCH (09:00)
[2016-12-21] MEDS: POLYETHYLENE GLYCOL 17 GM/PKT PO SCH ×3 (09:00→21:00)
[2016-12-21] MEDS: LACTULOSE 20 GM/30 ML UDC PO SCH ×3 (09:00→21:00)
[2016-12-21] MEDS: DOCUSATE SODIUM 250 MG GELCAP PO SCH ×3 (09:00→21:00)
[2016-12-21] MEDS: VIT-B COMP/VIT-C/FOLIC ACID 1 TAB PO SCH (09:30)
--- NOTE | 2016-12-21 09:30 | NUR ---
SCHEDULED PO BP MEDS HELD PER PARAMETER. PT TOLERATED WELL WITH ROUTINE/SCHEDULE PO MEDS, BUT REFUSED TO TAKE PO LAXATIVE MEDS. RISKS AND BENEFITS EXPLAINED AND PT REFUSED.
[2016-12-21] MEDS: ASPIRIN 81 MG TAB.CHEW PO SCH (09:34)
--- NOTE | 2016-12-21 11:53 | NUR ---
SS NOTE: PER KINSEY FROM [facility], SHE WILL BE HERE LATER TO MEET WITH PT BEDSIDE.
[2016-12-21] MEDS: THERAHONEY GEL 42.5 GM TP SCH (13:33)
--- NOTE | 2016-12-21 15:19 | NUR ---
ANSWERED CALL LIGHT. PT REQUESTED TO BE TURNED. CHARGE NURSE IN TO ASSIST PRIMARY NURSE TO REPOSITION AND REINFORCED LEFT BUTTOCK DRESSING. PT BECAME UNRESPONSIVE AND UNABLE TO BREATHE. HR: 69 BP: 90/54 OXYGEN SAT: 97.%, BY 2LPM OXYGEN VIA NASAL CANNULA RR: 12. RESPIRATORY THERAPY CALLED FOR ASSISTANCE. PT IS DNR STATUS.
--- NOTE | 2016-12-21 15:20 | NUR ---
CALLER DAUGHTER, DAREN, , TO NOTIFY PT'S CURRENT STATUS. PER DAREN, SHE IS COMING TO SEE PT NOW.
--- NOTE | 2016-12-21 15:22 | NUR ---
CALLED DR. PUCKETT AND DR. SOLARES TO INFORM PT'S CURRENT STATUS. PER DR. PUCKETT, HE IS IN CLINIC NOW AND CANNOT COME IN TO SEE PT AT THIS TIME. DR. SOLARES MADE AWARE OF PT'S CHANGE OF CONDITION AND PER DR. SOLARES, HE IS IN OR AT THIS TIME.
--- NOTE | 2016-12-21 15:25 | NUR ---
PT'S BLOOD SUGAR: 130 MG/DL.
--- NOTE | 2016-12-21 15:28 | NUR ---
ICU CALLED STAT AND SAID PT IS NOT BREATHING. UPON ARRIVAL PT IS LETHARGIC AND BREATHING 10 BPM. PT IS CURRENTLY ON NRB MASK SATTING 96%. STILL WITH PATIENT. PT IS DNR. RN AND ICU PATTERN ILLUSTRATOR AT BEDSIDE.
--- NOTE | 2016-12-21 15:35 | NUR ---
REACCESSED PT. PT RESPONSIVE TO TACTILE STIMULI AND ABLE TO OPEN HIS EYES. BP: 82/48 MONITOR SHOWS UNCONTROLLED A FIB. RR: 19. PT IS ON NRB AT OXYGEN SATURATION 97%
--- NOTE | 2016-12-21 15:50 | NUR ---
CALLED DR. THOMPSON TO INFORM PT'S CHANGE OF CONDITION. DR. THOMPSON AWARE OF PT'S DNR STATUS. DR. THOMPSON STATED " ONLY ER PHYSICIAN CAN KEEP PT'S ALIVE."
--- NOTE | 2016-12-21 16:00 | NUR ---
PT BECAME MORE CONSCIOUSNESS, KEPT REMOVING NRB AT THIS TIME. PT'S OXYGEN SAT : 94%.CHARGE NURSE PRESENT AT BEDSIDE AND INSTRUCTED PT TO HAVE NRB IN PLACE. PT HAD NRB ON AT THIS TIME.
--- NOTE | 2016-12-21 16:10 | NUR ---
DR. THOMPSON PRESENT AT BEDSIDE TO ASSESS PT.
--- NOTE | 2016-12-21 16:16 | NUR ---
DAUGHTER, DAREN, CALLED IN AND UPDATED HER WITH PT'S CURRENT STATUS. DAUGHTER STATED " I AM IN TRAFFIC NOW, I WILL BE THERE IN 4:35"
[2016-12-21] MEDS ORDERED: DILTIAZEM 25 MG/5 ML VIAL IVP SCH (16:28)
[2016-12-21] MEDS ORDERED: methylPREDNISolone SS 125 MG/2 ML VIAL IVP SCH (16:30)
[2016-12-21] MEDS ORDERED: NACL 0.9% 500 ML IV ONE (16:30)
--- NOTE | 2016-12-21 16:31 | NUR ---
DR. THOMPSON PLACED STAT ORDERS BOLUS AND WANTED TO EMERGENCY CENTRAL LINE INSERTION
--- NOTE | 2016-12-21 16:50 | NUR ---
DR. ANDREW THOMPSON AT BEDSIDE FOR CENTRAL LINE PROCEDURE HOLD ABG UNTIL COMPLETION OF FOREMENTIONED PROCEDURE MD TO NOTIFY CORPORATE CONCIERGE
[2016-12-21] MEDS ORDERED: LORazepam 2 MG/ML VIAL IVP SCH (16:55)
[2016-12-21] MEDS ORDERED: HYDROmorphone 1 MG/ML AMP IVP SCH ×3 (16:55→17:48)
--- NOTE | 2016-12-21 16:55 | NUR ---
GRANDSON CAME IN. PER GRANDSON, HER AUNTIE, DAREN, WILL COME TO SEE PT SOON.
--- NOTE | 2016-12-21 17:00 | NUR ---
DR. THOMPSON AT BEDSIDE AND ATTEMPTED TO INSERT CENTRAL LINE. DR. THOMPSON SAID THAT HE WILL TALK TO FAMILY MEMBERS AFTER PROCEDURE IS COMPLETED.
--- NOTE | 2016-12-21 17:45 | NUR ---
DR. THOMPSON UNABLE TO INSERT THE CENTRAL LINE. DR. THOMPSON ASKED CHARGE NURSE TO CALL DR. SOLARES TO ASSIST FOR CENTRAL LINE INSERTION. ASSOCIATE MUSIC PROFESSOR PRESENT AT BEDSIDE, ASSISTING DR. THOMPSON FOR PROCEDURE.
--- NOTE | 2016-12-21 17:55 | NUR ---
DR. SOLARES PRESENTED AT BEDSIDE, TAKING OVER THE PROCEDURE OF CENTRAL LINE INSERTION.
--- NOTE | 2016-12-21 18:15 | NUR ---
RT I. J. CENTRAL LINE INSERTED BY DR. SOLARES. STAT CXR ORDERED.
[2016-12-21] MEDS ORDERED: NALOXONE 0.4 MG/ML VIAL IVP SCH (18:51)
--- NOTE | 2016-12-21 19:00 | NUR ---
DR. SOLARES DISCUSSED WITH PT'S DAUGHTER, DAREN, IN THE WAITING ROOM REGARDING TO PT'S CURRENT CONDITION AND PROGNOSIS. ALL FAMILY MEMBERS PRESENT IN UNIT. PER DR. SOLARES, PT'S DAUGHTER AND SON WISHED FOR DNR STATUS. PT'S SON SIGNED DNR CODE STATUS FORM.
--- NOTE | 2016-12-21 19:30 | NUR ---
ENDORSED REPORT TO MARKING MACHINE TENDER RN AT BEDSIDE FOR CONTINUITY OF CARE. PM SHIFT WILL ADMINISTER BACTROBAN OINT DUE 1800 DUE TO PT HAD PROCEDURE AT THAT TIME
--- NOTE | 2016-12-21 19:35 | NUR ---
ASSUMED CARE OF PT.INITIAL ASSESSMENT COMPLETED.PT LETHARGIC.WITHDRAWS TO PAIN. SR ON MONITOR.ON 100% NON REBREATHER.02SAT 100%.WITH TLC TO RT IJ INTACT.AWAITING ORDER FROM MD TO USE TLC.W/PERIPHERAL IV TO RT F/A INTACT INFUSING NS AT 10ML/HR AND LEVOPHED 4MG IN 250ML D5W AT 10MCG/MIN(37.5ML/HR). ABDOMEN SOFT.NON DISTENDED.NPO FOR NOW;RISK FOR ASPIRATION.W/ BILATERAL BKA.W/ PRESSURE ULCERS TO COCCYX AND LT BUTTOCKS NOTED.D/I DRESSING TO COCCYX.W/ AV SHUNT TO LUE,+THRILL/BRUIT.PT IS ANURIC.FLACC 0.REPOSITIONED. Addendum: 12/22/16 at 0257 by Kaley Wright RN CHEST TUBE TO RT CHEST INTACT WITH SMALL YELLOWISH OUTPUT, CONNECTED TO SUCTION
--- NOTE | 2016-12-21 19:55 | NUR ---
OK TO USE TLC ORDERED BY DR SOLARES.LEVOPHED DRIP AND IVF TRANSFERRED TO TLC.GOOD BLOOD RETURN TO ALL 3 PORTS.
--- NOTE | 2016-12-21 20:00 | NUR ---
FAMILY AT BEDSIDE.UPDATED ON PTS PRESENT CONDITION.QUESTIONS ANSWERED.MAINTAINED ON CONTACT ISOLATION.PPE IN USE BY FAMILY.FAMILY VERBALIZED UNDERSTANDING.
[2016-12-21 20:30] LABS: BLOOD GAS BASE EXCESS -2.4 mmol/L (-2.0-2.0); BLOOD GAS HCO3 28.4 mmol/L; BLOOD GAS PCO2 86.1 mmHg (20-50); BLOOD GAS PH 7.136 (7.35-7.45); BLOOD GAS PO2 154.3 mmHg
[2016-12-21 20:31] LABS: BLOOD GAS O2 SAT% 98.7 % (92.0-98.5)
--- NOTE | 2016-12-21 20:55 | NUR ---
2047 AFTER ABG RESULTS LOWERED PT FIO2 TO 60% WITH A PARTIAL NRB MASK. PT SATS 100% GAVE RESULTS TO DALLAS CUETO
[2016-12-21] MEDS: SIMVASTATIN 20 MG TAB PO SCH (21:00)
--- NOTE | 2016-12-21 21:00 | NUR ---
PHONE CALL FROM DR SOLARES; SAID HE ALREADY SAW ABG RESULT.MADE AWARE THAT PT ON PARTIAL NON REBREATHER MASK FIO2 60%.NO NEW ORDERS RECEIVED. PER MD, HE WILL CALL RT.
[2016-12-21] MEDS: MUPIROCIN 2% OINT 22 GM TUBE TP SCH (21:15)
[2016-12-21] MEDS: CHLORHEXADINE GLUC 2% CLOTH TP SCH (21:15)
--- NOTE | 2016-12-21 23:04 | NUR ---
PT ASLEEP;WITHDRAWS TO PAIN.STILL NON VERBAL.SR ON MONITOR.STILL ON PARTIAL NON REBREATHER FIO2 60%. 02SAT REMAINS AT 100%.
[2016-12-21] MEDS ORDERED: NOREPINEPHRINE 4 MG/4 ML VIAL IV ONE (23:21)
[2016-12-21] MEDS: NOREPINEPHRINE 8 MG in DEXTROSE 5% 250 ML IV PRN (23:25)
[2016-12-22] VITALS (64 sets, daily range): BP systolic 0–138; BP diastolic 0–90
--- NOTE | 2016-12-22 00:41 | NUR ---
PT ASLEEP,WITHDRAWS TO PAIN.NO SIGNS OF RESP DISTRESS.02SAT 100% ON FIO2 60% PARTIAL REBREATHER MASK.FLACC 0
[2016-12-22] MEDS: Z-GUARD PASTE TP SCH ×2 (00:48→13:00)
[2016-12-22] MEDS: ALBUTEROL SULFATE/IPRATROPIU 3 ML SOL IH SCH ×2 (01:24→07:12)
--- NOTE | 2016-12-22 02:00 | NUR ---
PT LETHARGIC.WITHDRAWS TO PAIN.CHEST TUBE TO RT CHEST INTACT TO SUCTION.TLC INTACT.INFUSING LEVOPHED AT 10MCG/MIN.STILL ON PARTIAL NRB MASK 60% FIO2.FLACC 0
--- NOTE | 2016-12-22 04:00 | NUR ---
PTS CONDITION REMAINS UNCHANGED.REPOSITIONED.FLACC 0
[2016-12-22 04:39] LABS: BASOPHILS # (AUTO) 0.1 K/uL (0.00-0.22); BASOPHILS % (AUTO) 0.7 % (0.0-2.0); EOSINOPHILS # (AUTO) 0.3 K/uL (0-0.4); EOSINOPHILS % (AUTO) 3.3 % (0.0-4.0); HEMATOCRIT 35.4 % (36-52); HEMOGLOBIN 10.7 g/dL (12.0-18.0); LYMPHOCYTES # (AUTO) 0.2 K/uL (2.0-11.5); LYMPHOCYTES % (AUTO) 2.2 % (20.5-51.1); MEAN CORPUSCULAR HEMOGLOBIN 31 pg (27-31); MEAN CORPUSCULAR HGB CONC 30 g/dL (33-37); MEAN CORPUSCULAR VOLUME 102 fL (80-94); MONOCYTES % (AUTO) 0.5 % (1.7-9.3); NEUTROPHILS # (AUTO) 8.2 K/uL (1.8-7.7); NEUTROPHILS % (AUTO) 93.3 % (42.2-75.2); PLATELET COUNT (AUTO) 136 K/uL (140-450); RED BLOOD CELL COUNT(AUTO) 3.48 MIL/uL (4.20-6.10); RED CELL DISTRIBUTION WIDTH 14.3 % (11.6-13.7); WHITE BLOOD COUNT (AUTO) 8.8 K/uL (4.8-10.8)
[2016-12-22 05:22] LABS: ANION GAP 11.9 (8-16); CALCIUM 7.7 mg/dL (8.5-10.1); CARBON DIOXIDE 30.5 mmol/L (21-32)
[2016-12-22] MEDS: PIPER/TAZO 2.25GM/D5W PREMIX 50 ML IV SCH ×2 (05:27→13:00)
[2016-12-22 05:42] LABS: POTASSIUM 6.4 mmol/L (3.5-5.1)
[2016-12-22 05:43] LABS: MAGNESIUM 1.9 mg/dL (1.8-2.4); PHOSPHORUS 9.1 mg/dL (2.5-4.9)
--- NOTE | 2016-12-22 06:00 | NUR ---
PHONE CALL TO DR PAZ REGARDING CRITICAL LAB RESULTS.NEW ORDERS RECEIVED.PT FOR HD TODAY.SAIMA SNOWDEN [facility] ACUTE DIALYSIS AWARE.
[2016-12-22] MEDS: BUDESONIDE 0.5 MG/2 ML NEBU INH SCH (07:23)
[2016-12-22] MEDS: CARVEDILOL 3.125 MG TAB PO SCH (08:00)
--- NOTE | 2016-12-22 08:00 | NUR ---
INITIAL SHIFT ASSESSMENT DONE. VERY DROWSY AND LETHARGIC BUT EASILY AROUSABLE TO NAME CALLING. FOLLOW SIMPLE COMMAND. NO C/O PAIN OR DYSPNEA. O2 SAT IN HIGH 90'S-100%. PUT ON O2 AT 3 L/MIN AROUND 0740 BECAUSE PATIENT DOES NOT LIKE THE SIMPLE MASK AND KEEPS TAKING IT OUT. SR WITH BBB ON MONITOR. SBP IN 120'S-130'S. ON LEVOPHED DRIP AT 10 MCG/MIN. HOB ELEVATED. RIGHT CHEST TUBE PATENT, INTACT, AND TO WALL SUCTION. LEFT BUTTOCK/SACRAL WOUND DRESSINGS ARE CLEAN, DRY, AND INTACT. UPDATED OF PLAN OF CARE. WILL CONTINUE TO MONITOR.
[2016-12-22] MEDS: BLOOD GLUCOSE MONITORING 1 DEV DEV FS SCH ×2 (08:13→11:38)
--- NOTE | 2016-12-22 08:15 | NUR ---
GIVEN BREAKFAST TRAY BUT PATIENT REFUSED TO EAT AT THIS TIME.
[2016-12-22] MEDS: INSULIN LISPRO SLIDING SCALE 100 UNITS/ML VIAL SUBQ PRN ×2 (08:34→11:47)
--- NOTE | 2016-12-22 08:40 | NUR ---
[facility] NURSE IS IN THE UNIT TO PREPARE THE PATIENT FOR DIALYSIS TREATMENT.
[2016-12-22] MEDS: POLYETHYLENE GLYCOL 17 GM/PKT PO SCH (09:00)
[2016-12-22] MEDS: LISINOPRIL 20 MG TAB PO SCH (09:00)
[2016-12-22] MEDS: LACTULOSE 20 GM/30 ML UDC PO SCH (09:00)
[2016-12-22] MEDS: ASPIRIN 81 MG TAB.CHEW PO SCH (09:00)
[2016-12-22] MEDS: VIT-B COMP/VIT-C/FOLIC ACID 1 TAB PO SCH (09:00)
[2016-12-22] MEDS: DOCUSATE SODIUM 250 MG GELCAP PO SCH (09:00)
--- NOTE | 2016-12-22 09:00 | NUR ---
REFUSED TO TAKE PO MEDS. PATIENT IS VERY DROWSY AND LETHARGIC. HD RN IN THE ROOM TO DO HEMODIALYSIS TO THE PATIENT.
--- NOTE | 2016-12-22 09:15 | NUR ---
HD DALLAS JAMES STARTED HEMODIALYSIS AT THIS TIME. WILL CONTINUE TO MONITOR.
--- NOTE | 2016-12-22 10:00 | NUR ---
SLEEPING IN BED BUT EASILY AROUSABLE. NO C/O PAIN OR DYSPNEA. O2 SAT 93-100%. SR WITH BBB ON MONITOR. SBP IN 90'S-120'S. OCCASIONAL PAC'S NOTED. HEMODIALYSIS GOING-ON, TOLERATING WELL. HOB ELEVATED. WILL CONTINUE TO MONITOR.
--- NOTE | 2016-12-22 10:50 | NUR ---
DR KILLIAN IS IN THE ROOM. UPDATED OF STATUS. NEW ORDER RECEIVE.
--- NOTE | 2016-12-22 11:30 | NUR ---
FAMILY MEMBERS AND SENIOR ENTERPRISE ARCHITECT ARE IN THE ROOM TALKING ABOUT HOSPICE CARE.
--- NOTE | 2016-12-22 12:10 | NUR ---
DR PAZ AND DR PUCKETT ARE IN THE ROOM TALKING TO THE FAMILY OF THE PATIENT. FAMILY REQUESTED COMFORT MEASURE ONLY AND TO STOP THE HEMODIALYSIS AND ALL MEDICATIONS EXCEPT PAIN MEDS FOR COMFORT. HOSPICE NURSE IS ALSO HERE AND AWARE OF FAMILY'S WISH.
--- NOTE | 2016-12-22 12:15 | NUR ---
HD [place] JAMES STOP THE HEMODIALYSIS AT THIS TIME PER DR PAZ'S ORDER PER FAMILY REQUEST. 800 ML WERE TAKEN OUT PER HD DALL[place] JAMES.
--- NOTE | 2016-12-22 12:41 | NUR ---
12/22/16 RD FOLLOW UP ASSESSMENT COMPLETED PLEASE REFER TO NUTRITION ASSESSMENT UNDER CARE ACTIVITY FOR ESTIMATED NUTRITIONAL NEEDS. RD RECOMMENDATIONS: 1. CONTINUE PUREE, CCHO 60 GM, RENAL DIET TOLERATED 2. PLEASE CONSULT PRN NEEDED FOR NUTRITION SUPPORT 3. RD WILL F/U 2-3 DAYS; HIGH RISK. MORENA JONES RD
[2016-12-22] MEDS: THERAHONEY GEL 42.5 GM TP SCH (13:00)
--- NOTE | 2016-12-22 13:00 | NUR ---
FAMILY REFUSED THE MEDICATIONS DUE AT 1300. FAMILY STATED TO DO COMFORT MEASURES ONLY.
[2016-12-22] MEDS: MORPHINE SULFATE 2 MG/ML SYR IVP PRN ×2 (13:06→14:33)
[2016-12-22] MEDS: DEXT 5% / NACL 0.9% 500 ML IV SCH ×2 (13:49→16:30)
--- NOTE | 2016-12-22 13:53 | NUR ---
DR ORANTES HHN PTSTILL ON 02 SPO2 .98
[2016-12-22] MEDS: NOREPINEPHRINE 8 MG in DEXTROSE 5% 250 ML IV PRN (14:38)
--- NOTE | 2016-12-22 14:50 | NUR ---
[facility] CARBONIZER INDAH IS BACK. UPDATED OF STATUS. NEW ORDERS RECEIVE. DALLAS CHAMPION STATED THAT SHE ALREADY GIVE THE COPY OF THE ORDER TO DR PUCKETT.
[2016-12-22] MEDS ORDERED: MORPHINE SULFATE 4 MG/ML SYR IVP PRN (14:55)
[2016-12-22] MEDS ORDERED: ACETAMINOPHEN 650 MG SUPP RC PRN (14:55)
[2016-12-22] MEDS ORDERED: ONDANSETRON 4 MG/2 ML VIAL IVP PRN (14:55)
[2016-12-22] MEDS ORDERED: LORazepam 0.5 MG TAB PO PRN (14:55)
--- NOTE | 2016-12-22 15:04 | NUR ---
1220 MET WITH PT, DAUGHTER DAREN AND TWO OTHER FAMILY MEMBERS AT BEDSIDE. DAUGHTER DAREN'S AUNT EDUARD KOWALSKI WHO IS A PHYSICIAN ON FACE TIME BY PHONE AND DR PUCKETT PRESENT. DR PUCKETT PRESENTED TO FAMILY PT'S CURRENT CONDITION AND POOR PROGNOSIS. DR WOOD HAD VISITED WITH THE FAMILY JUST PRIOR AND HE INFORMED DR PUCKETT THAT PT SAID HE "WANTS TO GO HOME TO BE WITH GOD". DR MERCEDES ACKNOWLEDGED THAT PT JUST WANTS TO BE COMFORTABLE. DR PUCKETT AND DCM DISCUSSED OPTIONS FOR CARE INCLUDING DISCONTINUING DIALYSIS. DAREN ASKED PT IF HE WANTED TO STOP THE MACHINE AND PT INDICATED BY HEAD NOD THAT HE DID. DAREN'S AUNT EDUARD KOWALSKI STATED THAT SHE IS IN AGREEMENT WITH DISCONTINUING HD AND WITH PT BEING CONVERTED TO [facility] HERE AT [facility]. PT AND DAREN ALSO IN AGREEMENT. DISCUSSED THAT ALL TX INCLUDING HD, LAB DRAWS AND OTHER DIAGNOSTIC TESTS WITH BE DISCONTINUED AND PT WILL RECEIVE ONLY MEDICATION TO PROVIDE COMFORT. [facility] PRESENT AND WILL SIGN PT [facility]O [facility].
--- NOTE | 2016-12-22 15:25 | NUR ---
LEVOPHED DRIP TURN OFF AT THIS TIME PER DR PUCKETT. PATIENT IS FOR COMFORT MEASURES ONLY AND UND[facility].
--- NOTE | 2016-12-22 15:30 | NUR ---
DICK NIETO IS IN THE ROOM
--- NOTE | 2016-12-22 16:30 | NUR ---
NOTED HR IN 40'S. SBP IN 60'S. CALLED DAUGHTER DAREN'S PHONE (EMERGENCY CONTACT) FOR STATUS UPDATE BUT NO ONE ANSWER. PATIENT IS FULL DNR.
--- NOTE | 2016-12-22 16:35 | NUR ---
AND DAUGHTER ARE IN THE ROOM. UPDATED OF STATUS.
--- NOTE | 2016-12-22 19:07 | NUR ---
SPEAK TO MELA OF [facility], GIVEN ALL THE DATA. MELA STATED THAT [facility] DECLINE BECAUSE OF HISTORY OF HEPATITIS B.
--- NOTE | 2016-12-22 19:19 | NUR ---
CALLED [facility] AND SPEAK WITH MARIAN, REPORT GIVEN ABOUT THE OF THE PATIENT. MARIAN STATED THAT SOMEBODY FROM [facility] WILL CALL BACK THE UNIT.
--- NOTE | 2016-12-22 20:02 | NUR ---
[facility]ACK [facility]ER CHRISTINE HERR CALLED BACK; REPORTED TO HIM THE DETAILS REGARDING THE PATIENT AND HE SAID THIS IS NOT A TRACK [employer]ASER CASE SO NO NEED FOR A NUMBER.
--- NOTE | 2016-12-22 20:15 | NUR ---
PAGED DR. NIRMAL PUCKETT BUT DR. WELCH ON CAN ANSWER THE PAGED, INFORMED THAT THERE'S NO NOTES OR WRITTEN DOCUMENTS IN THE PROGRESS NOTE THAT PATIENT ; HE SAID THAT THEY WILL WRITE THE NOTES LATER SAME THEY WERE DOING IN THE FLOOR.
--- NOTE | 2016-12-22 20:30 | NUR ---
PATIENT'S FAMILIES AT BEDSIDE AND TALKED TO PATIENT'S DAUGHTER DAREN ABOUT THE MORTUARY AND SHE HERSELF CONTACTED OR MADE AN ARRANGEMENT TO [facility] AND PER THE MORTICIAN OF THAT SAID MORTUARY, THEY WILL UP THE BODY IN ABOUT 1-2 HOURS DEPENDING ON THE TRAFFIC.
--- NOTE | 2016-12-22 21:15 | NUR ---
CLEANED AND PUT PATIENT IN A BODY BAG.
--- NOTE | 2016-12-22 23:20 | NUR ---
BODY TAKEN BY [facility].
== END 2016-12-22 18:37 | disposition expired | DRG 871 ==
LOC: MED 20:50 → MTU 23:19 → MIC 12-20 11:12
PROVIDERS: ADMIT Student in an Organized Health Care Education/Training Program; ATTEND Student in an Organized Health Care Education/Training Program
PROC: 5A1D60Z (ICD-10-PCS; 2016-12-18)
PROC: 0W993ZZ Drainage of Right Pleural Cavity, Percutaneous Approach (ICD-10-PCS; 2016-12-19)
PROC: 0W9900Z Drainage of Right Pleural Cavity with Drainage Device, Open Approach (ICD-10-PCS; principal; 2016-12-20)
PROC: 02HV33Z Insertion of Infusion Device into Superior Vena Cava, Percutaneous Approach (ICD-10-PCS; 2016-12-21)
PROC: B548ZZA Ultrasonography of Superior Vena Cava, Guidance (ICD-10-PCS; 2016-12-21)
DX: A41.9 Sepsis, unspecified organism (principal); G93.41 Metabolic encephalopathy; N18.6 End stage renal disease; I50.43 Acute on chronic combined systolic (congestive) and diastolic (congestive) heart failure; N17.0 Acute kidney failure with tubular necrosis; L89.323 Pressure ulcer of left buttock, stage 3; J96.21 Acute and chronic respiratory failure with hypoxia; R65.21 Severe sepsis with septic shock; D68.69 Other thrombophilia; I42.9 Cardiomyopathy, unspecified; J90 Pleural effusion, not elsewhere classified; E46 Unspecified protein-calorie malnutrition; R64 Cachexia; J93.9 Pneumothorax, unspecified; I13.2 Hypertensive heart and chronic kidney disease with heart failure and with stage 5 chronic kidney disease, or end stage renal disease; E11.65 Type 2 diabetes mellitus with hyperglycemia; E11.22 Type 2 diabetes mellitus with diabetic chronic kidney disease; E11.21 Type 2 diabetes mellitus with diabetic nephropathy; E11.51 Type 2 diabetes mellitus with diabetic peripheral angiopathy without gangrene; J44.9 Chronic obstructive pulmonary disease, unspecified; K56.41 Fecal impaction; E78.5 Hyperlipidemia, unspecified; D64.9 Anemia, unspecified; E02 Subclinical iodine-deficiency hypothyroidism; E83.51 Hypocalcemia; E87.5 Hyperkalemia; D69.6 Thrombocytopenia, unspecified; E83.39 Other disorders of phosphorus metabolism; Z51.5 Encounter for palliative care; Z66 Do not resuscitate; Z68.23 Body mass index [BMI] 23.0-23.9, adult; Z91.19 Patient's noncompliance with other medical treatment and regimen; Z89.512 Acquired absence of left leg below knee; Z89.511 Acquired absence of right leg below knee; Z99.2 Dependence on renal dialysis; Z99.81 Dependence on supplemental oxygen; Z79.82 Long term (current) use of aspirin; Z79.899 Other long term (current) drug therapy; Z79.4 Long term (current) use of insulin; Z86.73 Personal history of transient ischemic attack (TIA), and cerebral infarction without residual deficits; Z87.891 Personal history of nicotine dependence
CPT/HCPCS: 36415; 36600; 71010; 74020; 76604; 76942; 80048; 80053; 82803; 82945; 82948; 83036; 83605; 83690; 83735; 83880; 84100; 84439; 84443; 84484; 85025; 85610; 87040; 87081; 87205; 93005; 93925; 94640; 96374; 97110; 97116; 97140; 97530; 97799; 99285; C1758; J1170; J1642; J1815; J1940; J2001; J2060; J2270; J2310; J2543; J2930; J3490; J7030; J7042; J7060; J7620; J7626; P9046; Q0092